=== PATIENT | female | born 1935 | race Caucasian/White ===

== ENCOUNTER 2017-09-10 14:24 | Emergency (ER) | payer OTHER, MEDICARE ==
[~2017-09-10] VITALS: Ht 154.9 cm; Wt 52.0 kg
[2017-09-10 14:27] VITALS: TEMP 36.9; Ht 154.9 cm; Wt 52.0 kg
[2017-09-10] MEDS ORDERED: EFF75 PO (15:56)
[2017-09-10 16:07] VITALS: BP 149/76; PULSE 66; O2SAT 97
--- NOTE | 2017-09-10 18:20 | EMERGENCY ROOM VISIT NOTE ---
History Report prepared by Tri: Eloise Woodward Under the Supervision of: Dr. Kervin Barrera M.D. First contact with patient: 14:31 Chief Complaint: MENTAL HEALTH EVALUATION Stated Complaint: ANX,DEPRESSION,HARD TO GET OUT OF BED/MAKE DECISON History of Present Illness The patient is a 81 year old female who presents to the Emergency Room for a mental health evaluation. The patient is in the ED with because she was told to come here to have her psychiatric medications adjusted. The patient's daughter talked to an intake nurse at Dr. Ramirez's-Psychiatry office who told the patient to come to the ED to "get her medications changed". The patient is moving from her home of 55 years in [place] to [place]. Per daughter, this move is causing increased stress to the patient. She has not been seen by Dr. Ramirez yet but will follow up with him after she completes her move to [place]. She has an appointment October 03. The patient takes Effexor and was put on Wellbutrin in April which wasn't working for her. The patient was then put on BuSpar in June. The patient notes feeling more anxious and depressed since starting BuSpar. She notes decreased appetite. She denies any fever. She has no significant physical complaints. She denies any suicidal or homicidal ideations. The patient has a history of depression, anxiety and diabetes. Source of History: patient Position: other (global ) Quality: other (mental health evaluation ) Modifying Factors (Relieving): other (none ) Associated Symptoms: No fevers Note: She notes decreased appetite. Review of Systems See HPI for pertinent positives & negatives. A total of 10 systems reviewed and were otherwise negative. Past Medical & Surgical Medical Problems: (1) Anxiety (2) Depression (3) Diabetes Family History Patient reports no known family medical history. Social History Smoking Status: Never Smoker Housing Status: lives with family Current/Historical Medications Scheduled Venlafaxine Hcl (Effexor), 75 MG PO DAILY Physical Exam Vital Signs Date Time Temp Pulse Resp B/P (MAP) Pulse Ox O2 Delivery O2 Flow Rate FiO2 09/10/17 16:07 66 149/76 97 09/10/17 14:27 36.9 72 20 184/81 94 Room Air Physical Exam Constitutional: Vital signs reviewed. Eyes: Pupils are equal round reactive to light. Conjunctiva are noninjected. ENT: Pharynx is clear without erythema or exudate. Mucous membranes are moist. Neck supple without meningeal signs. Respiratory: Clear to auscultation bilaterally. Breath sounds are equal bilaterally. Cardiovascular: Regular rate and rhythm. No rubs or gallops. GI: Soft, nondistended and nontender. Bowel sounds are present. Musculoskeletal: No peripheral edema. No lower extremity tenderness. Integumentary: No cyanosis. Neurological: The patient is awake and alert. No focal deficits. Psychiatric: Normal affect. Medical Decision & Procedures ED Course 1434: The patient was evaluated in room A6. A complete history and physical exam was performed. 1549: [facility] evaluated the patient and recommended having the patient increase her Effexor to 100 mg a day. 1609: Upon reevaluation, the patient appeared to have improvement of her symptoms. I discussed tonight's findings with the patient. She verbalized agreement of the treatment plan. The patient was discharged home. Medical Decision This is an 81-year-old female presents for mental health evaluation. I did perform a limited focused review of portions of the patient's old chart on the electronic medical record. The patient has had no recent pertinent visits to this hospital. I did evaluate the patient as noted above. She is presenting because she has had increased stress and anxiety. Her nurse told her to come here to have her psychiatric meds adjusted. She is not suicidal or homicidal. She had been sitting anxiety is morning which has seemed to have resolved. She does not desire or need inpatient psychiatric care. I did not feel comfortable adjusting her medications. We did have [facility] evaluate her and they recommended increasing her Effexor to 150 mg. Previously she was on 150 mg but they have decreased her when they put her on the BuSpar and Wellbutrin. The patient was happy with this plan. She was given a prescription for additional Effexor so that she would take 150 mg daily and will follow up with her psychiatrist per her appointment. Medication Reconcilliation Current Medication List: was personally reviewed by me Blood Pressure Screening Patient's blood pressure: Elevated blood pressure Blood pressure disposition: Referred to PCP Impression Primary Impression: Mood disorder Additional Impression: Acute anxiety Scribe Attestation The scribe's documentation has been prepared under my direct and personally reviewed by me in its entirety. I confirm that the note above accurately reflects all work, treatment, procedures, and medical decision making performed by me. Departure Information Dispostion Home / Self-Care Prescriptions Venlafaxine Hcl (Effexor) 75 Mg Tab 75 MG PO DAILY, #30 TAB Prov: Kervin Barrera M.D. 09/10/17 Referrals No Doctor, Assigned (PCP) Forms HOME CARE DOCUMENTATION FORM, IMPORTANT VISIT INFORMATION Patient Instructions ED Depression, My [facility] Additional Instructions You have been examined and treated today on an emergency basis only. This is not a substitute for, or an effort to provide, complete comprehensive medical care. It is impossible to recognize and treat all injuries or illnesses in a single emergency department visit. It is therefore important that you follow up closely with your psychiatrist per your appointment. Return for worsening symptoms or if you develop thoughts of hurting yourself or others or any other concerning symptoms. Increase your dose of Effexor to 150 mg daily. Problem Qualifiers
== END 2017-09-10 16:09 | disposition home or self-care (01) ==
LOC: C.EDB 14:26 → C.EDA 16:09
DX: F32.9 Major depressive disorder, single episode, unspecified (principal); F41.8 Other specified anxiety disorders; E11.9 Type 2 diabetes mellitus without complications

== ENCOUNTER → 2017-11-27 | Outpatient (CLI) | payer OTHER, MEDICARE ==
[~2017-11-27] MED LIST: EFF75 PO
[2017-11-27 17:48] LABS: ALBUMIN 3.7 gm/dl (3.4-5.0); ALT/SGPT 49 U/L (12-78); BLOOD UREA NITROGEN 25 mg/dl (7-18); CALCIUM 8.9 mg/dl (8.5-10.1); CARBON DIOXIDE 29 mmol/L (21-32); CREATININE 0.73 mg/dl (0.60-1.20); GLUCOSE 198 mg/dl (70-99); POTASSIUM 4.1 mmol/L (3.5-5.1); SODIUM 132 mmol/L (136-145)
[2017-11-27 17:51] LABS: ALKALINE PHOSPHATASE 95 U/L (45-117); AST/SGOT 33 U/L (15-37); TOTAL PROTEIN 6.7 gm/dl (6.4-8.2)
[2017-11-28 06:54] LABS: HEMOGLOBIN A1C 7.6 % (4.5-5.6)
== END | disposition home or self-care (01) ==
LOC: C.LABBFT 12:43
PROVIDERS: ATTEND Internal Medicine
DX: Z00.00 Encounter for general adult medical examination without abnormal findings (principal); E11.9 Type 2 diabetes mellitus without complications; G25.0 Essential tremor; F33.1 Major depressive disorder, recurrent, moderate

== ENCOUNTER → 2017-11-28 | Outpatient (CLI) | payer OTHER, MEDICARE | END | disposition home or self-care (01) | LOC: C.LABBFT 12:39 | PROVIDERS: ATTEND Student in an Organized Health Care Education/Training Program | DX: F33.1 Major depressive disorder, recurrent, moderate (principal) ==

== ENCOUNTER 2021-03-06 08:23 | Observation (INO) ==
[2021-03-06] MEDS ORDERED: ACETAMINOPHEN 500 MG TAB PO STA (08:43)
[2021-03-06] MEDS ORDERED: SODIUM CHLORIDE 0.9% 1000ML 1,000 ML IV SCH (08:45)
[2021-03-06] MEDS: SODIUM CHLORIDE 0.9% 1000ML 1,000 ML IV SCH ×3 (08:55→21:15)
[2021-03-06 09:06] LABS: Appearance Urine Cloudy (Clear); Bacteria Urine Automated 4+ (Negative); Bilirubin Urine Negative (Negative); Blood Urine 1+ (Negative); Color Urine Yellow; Epithelial Cell Urine Auto 0-5 /lpf (0-5); Glucose Urine UA Negative (Negative); Ketones Urine 2+ (Negative); Leukocyte Esterase Urine 3+ (Negative); Nitrite Urine Positive (Negative); Protein Urine 1+ (Negative); RBC Urine Automated 0-4 /hpf (0-4); Specific Gravity Urine 1.014 (1.000-1.030); Urobilinogen Urine Negative (Negative); WBC Urine Automated >30 /hpf (0-5)
--- NOTE | 2021-03-06 09:11 | Emergency Department Note ---
Impression & Plan Acute UTI (urinary tract infection), Fever, Weakness, Acute dehydration, Acute hyponatremia ED Provider Note INFORMANT: Patient and daughter ED PROVIDER(S): Tony Steiner MD CHIEF COMPLAINT: Illness PLAN: Disposition: Admitted Condition: Good Outpatient prescription management: None Referral: None MEDICAL DECISION MAKING: Patient presented due to weakness and fever. She had a work-up obtained. Cultures performed. Her CBC was unremarkable. Chemistry panel revealed mild hyperglycemia, dehydration mild hyponatremia. Urinalysis was concerning for infection. Patient was treated with normal saline and IV Rocephin. Her left lower extremity cellulitis looks much improved and nearly resolved. X-ray imaging of the foot and lower leg did not reveal any evidence of fracture. Chest x-ray was unremarkable except for some questionable left base markings. The patient has no pulmonary symptoms. Due to the weakness she will need further management in the hospital. Consultation was made with Dr. oRoney of the [facility] service. Patient was evaluated in the ER and admitted. Triage Nursing notes reviewed and agree them. Vital Signs: reviewed and remarkable for no significant abnormalities Differential diagnosis: Infection, dehydration, metabolic abnormality, hypo/hyperglycemia, electrolyte disturbance, anemia, hypoxia, cardiac sources, intracerebral event, toxicologic, neurologic, as well as other pathologies. Diagnostics interpreted by me: ECG: Twelve-lead ECG reveals normal sinus rhythm at 75 bpm. Left axis deviation. Anterior Q waves present. No ST elevation or depression. No PACs or PVCs. Cardiac Monitoring: Cardiac monitoring ordered by me: The patient was placed on continuous cardiac monitoring and observed. It revealed a normal sinus rhythm at 70 beats per minute without ectopy or evidence of dysrhythmia. Imaging studies: Chest x-ray as above. Tib-fib and left ankle x-rays show soft tissue swelling but no evidence of bony pathology. HPI: The patient is a 85 year old female who presents to the Emergency Room with complaints of weakness. This started last night and is persisting. Daughter states that she was unable to get her off of the toilet this morning and EMS was summoned. The patient also notes the following associated symptoms, fever, decreased appetite, fluctuating but increasing blood glucose measurements. Patient also noted that she had a swollen gland in the right neck anteriorly few days ago but it went away. The patient has found no relieving factors. Current pain in the left foot. The patient had an unwitnessed fall. She states she did not strike her head. She has recently been dealing with left lower extremity cellulitis. She was on clindamycin and Keflex. These medications were not helping and she was evaluated in the ER. She received IV Dalvance. She had a 48-hour recheck. She did much better with the Dalvance treatment. Her redness, warmth, and swelling diminished. She feels that the left dudley area of previous cellulitis has improved. She does note some swelling on the left foot and ankle area. She is unsure if this was a fall. Pt denies LOC, headache, fevers, chills, diaphoresis, visual changes, neck pain, chest pain, breathing difficulties, nausea, vomiting, abdominal pain, new back pain, melena, hematochezia, urinary symptoms, numbness, rash, or other complaints. ROS: See above HPI for pertinent positives & negatives. A total of 10 systems re viewed and were otherwise negative. PAST MEDICAL HISTORY:See Below , cellulitis, diabetes, Parkinson PAST SURGICAL HISTORY:See Below, FAMILY HISTORY:See Below SOCIAL HISTORY:See Below, lives with daughter HOME MEDICATIONS:See Below ALLERGIES:See Below VITALS:See Below PHYSICAL EXAMINATION: GENERAL: Awake, alert, tired-appearing, in no distress HENT: Normocephalic, atraumatic. Oropharynx unremarkable. EYES: Normal conjunctiva. Sclera non-icteric. NECK: Inspection normal. Non-tender. Supple. No nuchal rigidity. FROM. No masses. RESPIRATORY: Clear to auscultation. No wheezes. No rales. Normal respiratory effort. CARDIAC: Normal rate. Normal rhythm. No murmurs. No rubs. Extremities warm and well perfused. Pulses equal. No JVD. GI: Soft, non-distended. No tenderness to palpation. No rebound or guarding. No masses. RECTAL: Deferred. MUSCULOSKELETAL: Atraumatic. Chest examination reveals no tenderness. The back is symmetrical on inspection without obvious abnormality. There is no CVA tenderness to palpation. No joint edema. LOWER EXTREMITIES: Calves are equal size bilaterally and non-tender. There is a fading erythematous discoloration to the left lower leg. The previous warmth, significant erythema, and edema has improved significantly. There is some mild edema and tenderness noted to the ankle and foot. There is a purplish discoloration of the left foot as well but the daughter states this is chronic. NEURO: Normal sensorium. No sensory or motor deficits noted. Parkinsonian tremor. SKIN: No rash or jaundice noted. Tony Steiner MD Past Med/Surg History Medical History Acid reflux Arthritis of knee, right Asthma well controlled per pt's daughter> no resc inh. does still get [place] Bronchiectasis Chronic constipation Chronic low back pain Chronic rhinitis Depression with anxiety Diverticular disease unsure if has> possible? 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 Beliefs That Will Affect Care: None marital status: / Current Living Situation: Other Current Living Situation Comment: lives with daughter current occupational status: retired Feels Safe at Home: Yes Assistive Devices: Glasses and Hearing Aid - Bilateral Allergies Allergies Allergy/AdvReac Type Severity Reaction Status Date / Time sulfamethoxazole Allergy Severe swelling Verified 03/06/21 10:15 of ankles/hands/feet amoxicillin [From Augmentin] Allergy Intermediate Hives Verified 03/06/21 10:15 clavulanic acid Allergy Intermediate Hives Verified 03/06/21 10:15 [From Augmentin] doxycycline Allergy Intermediate Gastrointestinal Verified 03/06/21 10:15 Upset Home Meds Home Medications Medication Instructions Recorded Confirmed buspirone 7.5 mg tablet 7.5 mg PO TIDM tab 02/26/19 03/06/21 aripiprazole 2 mg tablet 4 mg PO QAM 06/30/19 03/06/21 venlafaxine 150 mg 150 mg PO DAILYBB 06/30/19 03/06/21 capsule,extended release 24 hr venlafaxine 37.5 mg 37.5 mg PO DAILYBB 06/30/19 03/06/21 tablet,extended release 24 hr Centrum Silver Women 1 tab PO QDL 05/31/20 03/06/21 Probiotic 3,000 mmu cells PO DAILYBB 05/31/20 03/06/21 venlafaxine 75 mg PO DAILYBB 05/31/20 03/06/21 insulin lispro 100 unit/mL 25 unit SQ AC ml MDD 30 UNITS 07/13/20 03/06/21 subcutaneous pen insulin glargine 100 unit/mL (3 13 unit SQ HS ml 09/19/20 03/06/21 mL) subcutaneous pen PreserVision AREDS-2 1 tab PO BIDM 10/26/20 03/06/21 calcium carbonate-vitamin D3 1 tab PO QDD 10/26/20 03/06/21 [Calcium 600 + D(3)] tamoxifen 20 mg tablet 20 mg PO DAILY 12/23/20 03/06/21 alendronate 70 mg tablet 70 mg PO .weekly tab 01/10/21 03/06/21 polyethylene glycol 3350 17 gram 17 g PO DAILY PRN 01/10/21 03/06/21 oral powder packet levocetirizine 5 mg tablet 5 mg PO HS tab 02/22/21 03/06/21 fluticasone furoate-vilanterol 1 inh INHALATION QAM 03/06/21 03/06/21 [Breo Ellipta] pantoprazole [Protonix] 40 mg PO QAM 03/06/21 03/06/21 primidone 200 mg PO TIDM 03/06/21 03/06/21 Previous Rx's Medication Instructions Recorded albuterol sulfate 90 mcg/actuation 2 puff INHALATION Q6H PRN #18 g 02/03/21 aerosol inhaler fluticasone propionate 50 1 - 2 spray INTRANASAL DAILY #15.8 02/03/21 mcg/actuation nasal ml spray,suspension montelukast 10 mg tablet 10 mg PO HS #90 tab 02/03/21 tiotropium bromide 1.25 2 puff INH QAM #4 g 02/03/21 mcg/actuation mist for inhalation oxycodone 5 mg tablet 5 mg PO Q6H PRN 30 Days #90 tab 02/14/21 propranolol 120 mg capsule,24 120 mg PO HS #30 cap 02/21/21 hr,extended release zonisamide 50 mg capsule 50 mg PO BID 30 Days #60 cap 02/21/21 fluconazole 150 mg tablet 150 mg PO Q3D #2 tab 02/28/21 Results & Data (ED) Vital Signs Vital Signs - 24 hr 03/06/21 08:25 03/06/21 08:26 03/06/21 08:47 Temperature 38.3 C H Temperature Source Oral Pulse Rate 74 74 Pulse Rate from SpO2 Sensor 73 Pulse Rhythm Regular Respiratory Rate 16 22 16 Respiratory Effort / Characteristics Non-Labored Spontaneous Non-Labored Spontaneous Respiratory Depth Normal Respiratory Pattern Regular Blood Pressure 124/79 124/79 Blood Pressure Mean 94 94 Pulse Oximetry 95 95 95 Oxygen Delivery Method Room Air Sepsis Recent Fever Within 48 Hours Yes Sepsis New/Unexplained Change in Mental Status No Sepsis Action Taken by Nursing No Action Required 03/06/21 08:50 03/06/21 09:00 03/06/21 09:30 Temperature Temperature Source Pulse Rate 70 72 69 Pulse Rate from SpO2 Sensor 70 72 69 Pulse Rhythm Respiratory Rate 20 19 22 Respiratory Effort / Characteristics Respiratory Depth Respiratory Pattern Blood Pressure 133/61 125/72 148/62 H Blood Pressure Mean 85 89 90 Pulse Oximetry 93 96 94 Oxygen Delivery Method Sepsis Recent Fever Within 48 Hours Sepsis New/Unexplained Change in Mental Status Sepsis Action Taken by Nursing 03/06/21 10:00 03/06/21 10:28 03/06/21 10:30 Temperature 36.8 C Temperature Source Oral Pulse Rate 70 70 Pulse Rate from SpO2 Sensor 68 70 Pulse Rhythm Respiratory Rate 19 20 Respiratory Effort / Characteristics Respiratory Depth Respiratory Pattern Blood Pressure 138/67 133/64 Blood Pressure Mean 90 87 Pulse Oximetry 95 93 Oxygen Delivery Method Sepsis Recent Fever Within 48 Hours Sepsis New/Unexplained Change in Mental Status Sepsis Action Taken by Nursing Laboratory Data Result diagrams: 03/06/21 08:45 03/06/21 08:45 Lab Results 03/06/21 03/06/21 03/06/21 Range/Units 08:40 08:45 08:45 WBC 7.39 (4.8-10.8) K/uL RBC 3.92 L (4.2-5.4) M/uL Hgb 12.9 (12.0-16.0) g/dL Hct 36.2 L (37-47) % MCV 92.3 (80-100) fL MCH 32.9 (25-34) pg MCHC 35.6 (32-36) g/dL RDW Std Deviation 46.3 (36.4-46.3) fL RDW Coeff of Nan 13.8 (11.5-14.5) % Plt Count 223 (130-400) K/uL MPV 9.6 (7.4-10.4) fL Immature Gran % (Auto) 0.4 % Neut % (Auto) 76.3 % Lymph % (Auto) 6.0 % Burnet % (Auto) 13.8 % Eos % (Auto) 3.2 % Baso % (Auto) 0.3 % Neut # (Auto) 5.64 (1.4-6.5) K/uL Lymph # (Auto) 0.44 L (1.2-3.4) K/uL Burnet # (Auto) 1.02 H (0.11-0.59) K/uL Eos # (Auto) 0.24 (0-0.5) K/uL Baso # (Auto) 0.02 (0-0.2) K/uL Immature Gran # (Auto) 0.03 H (0.00-0.02) K/uL PT 9.8 (9.0-12.0) Seconds INR 1.0 (0.9-1.1) APTT 22.8 (21.0-31.0) Seconds PTT Ratio 0.9 Sodium (136-145) mmol/L Potassium (3.5-5.1) mmol/L Chloride (98-107) mmol/L Carbon Dioxide (21-32) mmol/L Anion Gap (3-11) BUN (7-18) mg/dl Creatinine (0.6-1.2) mg/dl Est Cr Clr Drug Dosing Est GFR ( Amer) ml/min Est GFR (Non-Af Amer) ml/min BUN/Creatinine Ratio (10-20) Glucose (70-99) mg/dl Lactate (0.4-2.0) mmol/L Calcium (8.5-10.1) mg/dl Magnesium (1.8-2.4) mg/dl Total Bilirubin (0.2-1) mg/dl AST (15-37) U/L ALT (12-78) U/L Alkaline Phosphatase (45-117) U/L Troponin I (0-0.045) ng/ml Total Protein (6.4-8.2) gm/dl Albumin (3.4-5.0) gm/dl Globulin (2.5-4.0) gm/dl Albumin/Globulin Ratio (0.9-2) Specimen Hemolysis Urine Color Yellow Urine Appearance Cloudy A (Clear) Urine pH 7.0 (4.5-7.5) Ur Specific [place] 1.014 (1.000-1.030) Urine Protein 1+ H (Negative) Urine Glucose (UA) Negative (Negative) Urine Ketones 2+ H (Negative) Urine Blood 1+ H (Negative) Urine Nitrite Positive A (Negative) Urine Bilirubin Negative (Negative) Urine Urobilinogen Negative (Negative) Ur Leukocyte Esterase 3+ H (Negative) Urine WBC (Auto) >30 H (0-5) /hpf Urine RBC (Auto) 0-4 (0-4) /hpf U Hyaline Cast (Auto) 1-5 (0-5) /lpf U Epithel Cells (Auto) 0-5 (0-5) /lpf Urine Bacteria (Auto) 4+ H (Negative) COVID-19 Eval Order SARS-CoV-2 (PCR) (Negative) 03/06/21 03/06/21 03/06/21 Range/Units 08:45 08:45 08:52 WBC (4.8-10.8) K/uL RBC (4.2-5.4) M/uL Hgb (12.0-16.0) g/dL Hct (37-47) % MCV (80-100) fL MCH (25-34) pg MCHC (32-36) g/dL RDW Std Deviation (36.4-46.3) fL RDW Coeff of Nan (11.5-14.5) % Plt Count (130-400) K/uL MPV (7.4-10.4) fL Immature Gran % (Auto) % Neut % (Auto) % Lymph % (Auto) % Burnet % (Auto) % Eos % (Auto) % Baso % (Auto) % Neut # (Auto) (1.4-6.5) K/uL Lymph # (Auto) (1.2-3.4) K/uL Burnet # (Auto) (0.11-0.59) K/uL Eos # (Auto) (0-0.5) K/uL Baso # (Auto) (0-0.2) K/uL Immature Gran # (Auto) (0.00-0.02) K/uL PT (9.0-12.0) Seconds INR (0.9-1.1) APTT (21.0-31.0) Seconds PTT Ratio Sodium 128 L (136-145) mmol/L Potassium 4.1 (3.5-5.1) mmol/L Chloride 96 L (98-107) mmol/L Carbon Dioxide 25 (21-32) mmol/L Anion Gap 7.0 (3-11) BUN 13 (7-18) mg/dl Creatinine 0.54 L (0.6-1.2) mg/dl Est Cr Clr Drug Dosing Not Reportable Est GFR ( Amer) 100.4 ml/min Est GFR (Non-Af Amer) 86.7 ml/min BUN/Creatinine Ratio 23.9 H (10-20) Glucose 207 H (70-99) mg/dl Lactate 1.2 (0.4-2.0) mmol/L Calcium 8.6 (8.5-10.1) mg/dl Magnesium 1.9 (1.8-2.4) mg/dl Total Bilirubin 0.4 (0.2-1) mg/dl AST 19 (15-37) U/L ALT 19 (12-78) U/L Alkaline Phosphatase 87 (45-117) U/L Troponin I < 0.015 (0-0.045) ng/ml Total Protein 6.3 L (6.4-8.2) gm/dl Albumin 3.1 L (3.4-5.0) gm/dl Globulin 3.2 (2.5-4.0) gm/dl Albumin/Globulin Ratio 1.0 (0.9-2) Specimen Hemolysis Urine Color Urine Appearance (Clear) Urine pH (4.5-7.5) Ur Specific [place] (1.000-1.030) Urine Protein (Negative) Urine Glucose (UA) (Negative) Urine Ketones (Negative) Urine Blood (Negative) Urine Nitrite (Negative) Urine Bilirubin (Negative) Urine Urobilinogen (Negative) Ur Leukocyte Esterase (Negative) Urine WBC (Auto) (0-5) /hpf Urine RBC (Auto) (0-4) /hpf U Hyaline Cast (Auto) (0-5) /lpf U Epithel Cells (Auto) (0-5) /lpf Urine Bacteria (Auto) (Negative) COVID-19 Eval Order Covid19 at [facility] SARS-CoV-2 (PCR) (Negative) 03/06/21 Range/Units 08:52 WBC (4.8-10.8) K/uL RBC (4.2-5.4) M/uL Hgb (12.0-16.0) g/dL Hct (37-47) % MCV (80-100) fL MCH (25-34) pg MCHC (32-36) g/dL RDW Std Deviation (36.4-46.3) fL RDW Coeff of Nan (11.5-14.5) % Plt Count (130-400) K/uL MPV (7.4-10.4) fL Immature Gran % (Auto) % Neut % (Auto) % Lymph % (Auto) % [place] % (Auto) % Eos % (Auto) % Baso % (Auto) % Neut # (Auto) (1.4-6.5) K/uL Lymph # (Auto) (1.2-3.4) K/uL [place] # (Auto) (0.11-0.59) K/uL Eos # (Auto) (0-0.5) K/uL Baso # (Auto) (0-0.2) K/uL Immature Gran # (Auto) (0.00-0.02) K/uL PT (9.0-12.0) Seconds INR (0.9-1.1) APTT (21.0-31.0) Seconds PTT Ratio Sodium (136-145) mmol/L Potassium (3.5-5.1) mmol/L Chloride (98-107) mmol/L Carbon Dioxide (21-32) mmol/L Anion Gap (3-11) BUN (7-18) mg/dl Creatinine (0.6-1.2) mg/dl Est Cr Clr Drug Dosing Est GFR ( Amer) ml/min Est GFR (Non-Af Amer) ml/min BUN/Creatinine Ratio (10-20) Glucose (70-99) mg/dl Lactate (0.4-2.0) mmol/L Calcium (8.5-10.1) mg/dl Magnesium (1.8-2.4) mg/dl Total Bilirubin (0.2-1) mg/dl AST (15-37) U/L ALT (12-78) U/L Alkaline Phosphatase (45-117) U/L Troponin I (0-0.045) ng/ml Total Protein (6.4-8.2) gm/dl Albumin (3.4-5.0) gm/dl Globulin (2.5-4.0) gm/dl Albumin/Globulin Ratio (0.9-2) Specimen Hemolysis Urine Color Urine Appearance (Clear) Urine pH (4.5-7.5) Ur Specific [place] (1.000-1.030) Urine Protein (Negative) Urine Glucose (UA) (Negative) Urine Ketones (Negative) Urine Blood (Negative) Urine Nitrite (Negative) Urine Bilirubin (Negative) Urine Urobilinogen (Negative) Ur Leukocyte Esterase (Negative) Urine WBC (Auto) (0-5) /hpf Urine RBC (Auto) (0-4) /hpf U Hyaline Cast (Auto) (0-5) /lpf U Epithel Cells (Auto) (0-5) /lpf Urine Bacteria (Auto) (Negative) COVID-19 Eval Order SARS-CoV-2 (PCR) NEGATIVE (Negative) Administered Medications Sodium Chloride (Nss 1000ml) 1,000 mls @ 150 mls/hr IV .[id number] ROBB Stop: 04/05/21 08:44 Last Admin: 03/06/21 08:55 Dose: 150 mls/hr Documented by: [id number] Discontinued Medications Acetaminophen (Acetaminophen 500 Mg Tab) 1,000 mg PO NOW STA Stop: 03/06/21 08:44 Last Admin: 03/06/21 08:51 Dose: 1,000 mg Documented by: [id number] Sodium Chloride (Nss 1000ml) 1,000 mls @ 999 mls/hr IV .Q1H1M ROBB Stop: 03/06/21 09:45 Last Infusion: 03/06/21 10:02 Dose: 0 mls/hr Documented by: [id number] Admin: 03/06/21 08:54 Dose: 999 mls/hr Documented by: [id number] Ceftriaxone Sodium (Rocephin) 1,000 mg in 50 mls @ 100 mls/hr IV NOW STA Stop: 03/06/21 11:07 Last Admin: 03/06/21 11:38 Dose: 100 mls/hr Documented by: [id number] Imaging Data Radiologist's Impression: Chest X-Ray 03/06/21 08:43 XR chest 1V portable CLINICAL HISTORY: SEPSIS COMPARISON STUDY: 10/26/2020 FINDINGS: The heart is enlarged. There is a mild scoliosis. There are minor left basilar airspace opacities, atelectatic versus infectious/inflammatory. There is no overt failure. There are no large pleural effusions. There is an old right-sided rib fracture.[ IMPRESSION: Minor left basilar opacities, atelectatic versus infectious/inflammatory ACT 112: Negative or not required by law. Electronically signed by: Serge Arias M.D. 03/06/2021 9:15 AM Foot X-Ray 03/06/21 08:44 XR foot LT min 3V routine HISTORY: 85 years-old Female fall acute left foot pain status post fall COMPARISON: Tibia and fibula radiographs of same day TECHNIQUE: 3 views of the left foot FINDINGS: Demineralized appearance of the bones. Multifocal osteoarthritis, moderate to severe within the midfoot. Extension of the first MTP joint limits evaluation of the first proximal phalanx. No acute fracture, dislocation or osseous erosion identified. Mild soft tissue swelling of the forefoot. IMPRESSION: Mild soft tissue swelling without acute fracture. ACT 112: Negative or not required by law. The above report was generated using voice recognition software. It may contain grammatical, syntax or spelling errors. Electronically signed by: Gerry Rosas M.D. 03/06/2021 9:12 AM Tibia/Fibula X-Ray 03/06/21 08:44 XR tibia fibula LT 2V CLINICAL HISTORY: fall, recent cellulitis over dudley COMPARISON STUDY: None. FINDINGS: No fracture or dislocation within the left tibia or fibula. There is mild diffuse soft tissue swelling within the left lower leg. This is most pronounced within the left ankle. No radiopaque foreign body. A few punctate vascular calcifications are noted within the soft tissues. IMPRESSION: 1. No fractures within the left lower leg. 2. Diffuse soft tissue swelling. ACT 112: Negative or not required by law. Electronically signed by: Hansel Wing M.D. 03/06/2021 9:31 AM Discharge Plan Visit Data Chief Complaint: Illness Stated Complaint: WEAKNESS, ED Provider: Tony Steiner Discharge Problem: Acute UTI (urinary tract infection), Fever, Weakness, Acute dehydration, Acute hyponatremia Forms Stand Alone Forms: [facility] Prescriptions Prescriptions: No Action insulin lispro [Humalog KwikPen Insulin] 100 unit/mL insulin pen 25 unit SQ AC MDD 30 UNITS RF: 0 oxycodone 5 mg tablet 5 mg PO Q6H PRN (Reason: pain) 30 Days Qty: 90 RF: 0 fluconazole 150 mg tablet 150 mg PO Q3D Qty: 2 RF: 0 buspirone 7.5 mg tablet 7.5 mg PO TIDM RF: 0 aripiprazole [Abilify] 2 mg tablet 4 mg PO QAM RF: 0 venlafaxine 150 mg capsule,extended release 24hr 150 mg PO DAILYBB RF: 0 venlafaxine 37.5 mg tablet extended release 24hr 37.5 mg PO DAILYBB RF: 0 Spiriva Respimat 1.25 mcg/actuation mist 2 puff INH QAM Qty: 4 RF: 5 albuterol sulfate 90 mcg/actuation HFA aerosol inhaler 2 puff inhalation Q6H PRN (Reason: shortness of breath or wheezing) Qty: 18 RF: 3 montelukast 10 mg tablet 10 mg PO HS Qty: 90 RF: 1 fluticasone propionate 50 mcg/actuation spray,suspension 1 - 2 spray intranasal DAILY Qty: 15.8 RF: 1 Lantus Solostar U-100 Insulin 100 unit/mL (3 mL) insulin pen 13 unit SQ HS RF: 0 zonisamide 50 mg capsule 50 mg PO BID 30 Days Qty: 60 RF: 5 propranolol 120 mg capsule,extended release 24 hr 120 mg PO HS Qty: 30 RF: 5 levocetirizine 5 mg tablet 5 mg PO HS RF: 0 tamoxifen 20 mg tablet 20 mg PO DAILY RF: 0 alendronate 70 mg tablet 70 mg PO .weekly RF: 0 Probiotic 3 billion cell Capsule 3,000 mmu cells PO DAILYBB RF: 0 venlafaxine 75 mg capsule,extended release 24hr 75 mg PO DAILYBB RF: 0 Centrum Silver Women 8 mg iron-400 mcg-300 mcg tablet 1 tab PO QDL RF: 0 polyethylene glycol 3350 [Miralax] 17 gram powder in packet 17 g PO DAILY PRN (Reason: Constipation) RF: 0 calcium carbonate-vitamin D3 [Calcium 600 + D(3)] 600 mg(1,500mg) -200 unit Tablet 1 tab PO QDD RF: 0 PreserVision AREDS-2 [id number] capsule 1 tab PO BIDM RF: 0 primidone 50 mg tablet 200 mg PO TIDM RF: 0 pantoprazole [Protonix] 40 mg tablet,delayed release (DR/EC) 40 mg PO QAM RF: 0 Breo Ellipta 100-25 mcg/dose blister with device 1 inh inhalation QAM RF: 0
--- NOTE | 2021-03-06 09:13 | XRay Report ---
XR foot LT min 3V routine HISTORY: 85 years-old Female fall acute left foot pain status post fall COMPARISON: Tibia and fibula radiographs of same day TECHNIQUE: 3 views of the left foot FINDINGS: Demineralized appearance of the bones. Multifocal osteoarthritis, moderate to severe within the midfo ot. Extension of the first MTP joint limits evaluation of the first proximal phalanx. No acute fractu re, dislocation or osseous erosion identified. Mild soft tissue swelling of the forefoot. IMPRESSION: Mild soft tissue swelling without acute fracture. ACT 112: Negative or not required by law. The above report was generated using voice recognition software. It may contain grammatical, syntax o r spelling errors. Electronically signed by: Gerry Rosas M.D. 03/06/2021 9:12 AM
[2021-03-06 09:14] LABS: Partial Thromboplastin Ratio 0.9; Partial Thromboplastin Time 22.8 Seconds (21.0-31.0); Prothrombin Time 9.8 Seconds (9.0-12.0)
[2021-03-06 09:15] LABS: Basophils # (auto) 0.02 K/uL (0-0.2); Basophils % (auto) 0.3 %; Eosinophils # (auto) 0.24 K/uL (0-0.5); Eosinophils % (auto) 3.2 %; Hematocrit (blood only) 36.2 % (37-47); Hemoglobin 12.9 g/dL (12.0-16.0); Immature Granulocytes # (auto) 0.03 K/uL (0.00-0.02); Immature Granulocytes % (auto) 0.4 %; Lymphocytes # (auto) 0.44 K/uL (1.2-3.4); Mean Corpuscular Hemoglobin 32.9 pg (25-34); Mean Corpuscular Hgb Conc 35.6 g/dL (32-36); Mean Corpuscular Volume 92.3 fL (80-100); Mean Platelet Volume 9.6 fL (7.4-10.4); Monocytes # (auto) 1.02 K/uL (0.11-0.59); Monocytes % (auto) 13.8 %; Neutrophils # (auto) 5.64 K/uL (1.4-6.5); Neutrophils % (auto) 76.3 %; Platelet Count 223 K/uL (130-400); RDW Coefficient of Variation 13.8 % (11.5-14.5); RDW Standard Deviation 46.3 fL (36.4-46.3); Red Blood Count 3.92 M/uL (4.2-5.4); White Blood Count 7.39 K/uL (4.8-10.8)
--- NOTE | 2021-03-06 09:16 | XRay Report ---
XR chest 1V portable CLINICAL HISTORY: SEPSIS COMPARISON STUDY: 10/26/2020 FINDINGS: The heart is enlarged. There is a mild scoliosis. There are minor left basilar airspace opa cities, atelectatic versus infectious/inflammatory. There is no overt failure. There are no large ple ural effusions. There is an old right-sided rib fracture.[ IMPRESSION: Minor left basilar opacities, atelectatic versus infectious/inflammatory ACT 112: Negative or not required by law. Electronically signed by: Serge Arias M.D. 03/06/2021 9:15 AM
[2021-03-06 09:30] LABS: Alanine Aminotransferase 19 U/L (12-78); Albumin Level 3.1 gm/dl (3.4-5.0); Alkaline Phosphatase 87 U/L (45-117); Aspartate Aminotransferase 19 U/L (15-37); BUN Creatinine Ratio 23.9 (10-20); Bilirubin,Total 0.4 mg/dl (0.2-1); Blood Urea Nitrogen 13 mg/dl (7-18); Calcium 8.6 mg/dl (8.5-10.1); Carbon Dioxide 25 mmol/L (21-32); Chloride 96 mmol/L (98-107); Est GFR (African American) 100.4 ml/min; Est GFR (Non-African American) 86.7 ml/min; Globulin 3.2 gm/dl (2.5-4.0); Glucose 207 mg/dl (70-99); Magnesium 1.9 mg/dl (1.8-2.4); Potassium 4.1 mmol/L (3.5-5.1); Sodium 128 mmol/L (136-145); Total Protein 6.3 gm/dl (6.4-8.2); Troponin I < 0.015 ng/ml (0-0.045)
--- NOTE | 2021-03-06 09:32 | XRay Report ---
XR tibia fibula LT 2V CLINICAL HISTORY: fall, recent cellulitis over dudley COMPARISON STUDY: None. FINDINGS: No fracture or dislocation within the left tibia or fibula. There is mild diffuse soft tiss ue swelling within the left lower leg. This is most pronounced within the left ankle. No radiopaque f oreign body. A few punctate vascular calcifications are noted within the soft tissues. IMPRESSION: 1. No fractures within the left lower leg. 2. Diffuse soft tissue swelling. ACT 112: Negative or not required by law. Electronically signed by: Hansel Wing M.D. 03/06/2021 9:31 AM
[2021-03-06] MEDS ORDERED: cefTRIAXone SODIUM 1,000 MG/50 ML BAG IV STA (10:38)
--- NOTE | 2021-03-06 11:30 | History & Physical Report ---
Date of Service March 06, 2021 Assessment & Plan (1) UTI (urinary tract infection): Likely cause of patient's generalized weakness Admit to a nonmonitored bed Patient was given ceftriaxone in the emergency room, continue empirically Await urine and blood cultures PT/OT evaluation (patient is recently started using a cane at home) (2) Cellulitis of left leg: Left lower extremity appears to be without active cellulitis, essentially healed Can continue to monitor prn (3) T1DM (type 1 diabetes mellitus): Check hemoglobin A1c Restart basal insulin at outpatient dosing Sliding scale insulin (4) Essential tremor: Patient does have a resting tremor, she is known to neurology as an outpatient Continue medications as per outpatient dosing including zonisamide, primadone and propranolol PT/OT as noted above History of Present Illness Chief Complaint: generalized weakness Primary Care Provider: Cris Sandoval MD This is an 85-year-old female with past medical history insulin-dependent diabetes mellitus, hyperlipidemia, essential tremor, and recent cellulitis that presents today with generalized weakness. Patient is accompanied by her daughter, both are pleasant and good historians. Patient was here in the emergency room 02/24 with left lower extremity cellulitis, had been treated with Keflex and clindamycin without success. Patient was treated with Dalvance, had followed up in the ER on 02/26 with significant improvement in her infection. Patient apparently did well and continued and improved. She notes only a slight decrease in appetite over the past 48 hours. At approximately 4 AM the patient got up from bed to go to the bathroom. After she urinated she found she was too weak to get off the toilet. She tried to call for her daughter who lives with her but the daughter did not hear. Patient was on the toilet for approximately 2-1/2 hours before the daughter found her there. Patient did also suffer a mild fall, injuring her left leg. She did not strike her head or lose consciousness. Patient was subsequently brought to the emergency room for further evaluation. Patient was found to be febrile with a temp of 38.3 C. Vitals are otherwise stable with normal heart rate and blood pressure. She did complain of ongoing generalized weakness but denied any other focal symptomatology including flank pain, chest pain, abdominal pain. She denied any urinary symptoms such as dysuria, hematuria, or suprapubic pain. She has not had any diarrhea or constipation. She is starting to have a little bit of an appetite. She states that her leg is essentially back to its baseline with no further erythema or pain. Allergies Allergy/AdvReac Type Severity Reaction Status Date / Time sulfamethoxazole Allergy Severe swelling Verified 03/06/21 10:15 of ankles/hands/feet amoxicillin [From Augmentin] Allergy Intermediate Hives Verified 03/06/21 10:15 clavulanic acid Allergy Intermediate Hives Verified 03/06/21 10:15 [From Augmentin] doxycycline Allergy Intermediate Gastrointestinal Verified 03/06/21 10:15 Upset Home Medications Medication Instructions Recorded Confirmed Type buspirone 7.5 mg tablet 7.5 mg PO TIDM tab 02/26/19 03/06/21 History aripiprazole 2 mg tablet 4 mg PO QAM 06/30/19 03/06/21 History venlafaxine 150 mg 150 mg PO DAILYBB 06/30/19 03/06/21 History capsule,extended release 24 hr venlafaxine 37.5 mg 37.5 mg PO DAILYBB 06/30/19 03/06/21 History tablet,extended release 24 hr Centrum Silver Women 1 tab PO QDL 05/31/20 03/06/21 History Probiotic 3,000 mmu cells PO DAILYBB 05/31/20 03/06/21 History venlafaxine 75 mg PO DAILYBB 05/31/20 03/06/21 History insulin lispro 100 unit/mL 25 unit SQ AC ml MDD 30 UNITS 07/13/20 03/06/21 History subcutaneous pen insulin glargine 100 unit/mL (3 13 unit SQ HS ml 09/19/20 03/06/21 History mL) subcutaneous pen PreserVision AREDS-2 1 tab PO BIDM 10/26/20 03/06/21 History calcium carbonate-vitamin D3 1 tab PO QDD 10/26/20 03/06/21 History [Calcium 600 + D(3)] tamoxifen 20 mg tablet 20 mg PO DAILY 12/23/20 03/06/21 History alendronate 70 mg tablet 70 mg PO .weekly tab 01/10/21 03/06/21 History polyethylene glycol 3350 17 gram 17 g PO DAILY PRN 01/10/21 03/06/21 History oral powder packet albuterol sulfate 90 mcg/actuation 2 puff INHALATION Q6H PRN #18 g 02/03/21 03/06/21 Rx aerosol inhaler fluticasone propionate 50 1 - 2 spray INTRANASAL DAILY #15.8 02/03/21 03/06/21 Rx mcg/actuation nasal ml spray,suspension montelukast 10 mg tablet 10 mg PO HS #90 tab 02/03/21 03/06/21 Rx tiotropium bromide 1.25 2 puff INH QAM #4 g 02/03/21 03/06/21 Rx mcg/actuation mist for inhalation oxycodone 5 mg tablet 5 mg PO Q6H PRN 30 Days #90 tab 02/14/21 03/06/21 Rx propranolol 120 mg capsule,24 120 mg PO HS #30 cap 02/21/21 03/06/21 Rx hr,extended release zonisamide 50 mg capsule 50 mg PO BID 30 Days #60 cap 02/21/21 03/06/21 Rx levocetirizine 5 mg tablet 5 mg PO HS tab 02/22/21 03/06/21 History fluconazole 150 mg tablet 150 mg PO Q3D #2 tab 02/28/21 03/06/21 Rx fluticasone furoate-vilanterol 1 inh INHALATION QAM 03/06/21 03/06/21 History [Breo Ellipta] pantoprazole [Protonix] 40 mg PO QAM 03/06/21 03/06/21 History primidone 200 mg PO TIDM 03/06/21 03/06/21 History Past Med/Surg History Medical History Acid reflux Arthritis of knee, right Asthma well controlled per pt's daughter> no resc inh. does still get [place] Bronchiectasis Chronic constipation Chronic low back pain Chronic rhinitis Depression with anxiety Diverticular disease unsure if has> possible? 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 White 06/08/2020 Family History Sister Diabetes Cancer Family/Other Lung disease Brother Cancer Social History Smoking Status: Never smoker Age Started Using Tobacco: 19; Age Quit Using Tobacco: 29; packs per day: 1; Years Smoked: 10; Number of Years Since Quit: 54; Second Hand Exposure: Yes; Hx Alcohol Use: Yes Alcohol type: wine Hx Substance Use: No Preferred Language: [place]an Communication Ability: Effective Visual Impairment: No Limitations Hearing Ability: Use of Hearing Aid Door Clamper Required: No Beliefs That Will Affect Care: None marital status: / Current Living Situation: Other Current Living Situation Comment: lives with daughter current occupational status: retired Feels Safe at Home: Yes Assistive Devices: Glasses and Hearing Aid - Bilateral Review of Systems Constitutional: + fever, + weakness and + anorexia; no chills, no weight loss and no weight gain Eyes: as per Subjective / HPI Respiratory: no cough, no chest congestion, no dyspnea and no dyspnea on exertion Cardiovascular: no chest pain, no orthopnea, no palpitations, no lightheadedness and no edema Gastrointestinal: no abdominal pain, no nausea, no vomiting, no constipation and no diarrhea/loose stools Genitourinary: no dysuria, no difficulty urinating, no urinary frequency, no urinary hesitancy, no urinary urgency and no flank pain Musculoskeletal: + joint pain and + muscle weakness; no back pain, no neck pain, no stiffness and no myalgia Integumentary: no rash Neurologic: no gait abnormality, no unsteadiness, no falls and no generalized weakness Physical Exam Constitutional: cooperative and comfortable; no acute distress Neck: trachea midline, no thyromegaly Respiratory: normal respiratory effort Auscultation: lungs clear to auscultation bilaterally; no crackles, no rales, no rhonchi and no wheezes Cardiovascular: Rate/Rhythm: regular rate and regular rhythm Heart Sounds: normal S1 and normal S2; no murmur Gastrointestinal (Abdomen): Inspection/Auscultation: abdomen normal to inspection Percussion/Palpation: abdomen soft; abdomen nontender, no g uarding, abdomen not rigid and no hepatosplenomegaly Skin: no rashes, warm and dry Genitourinary: No flank pain or suprapubic tenderness Results & Data Results & Data ([facility]) Vital Signs (Past 12 Hours) Vital Signs Temp Pulse Resp BP Pulse Ox 03/06/21 10:30 70 20 133/64 93 03/06/21 10:28 36.8 C 03/06/21 10:00 70 19 138/67 95 03/06/21 09:30 69 22 148/62 H 94 03/06/21 09:00 72 19 125/72 96 03/06/21 08:50 70 20 133/61 93 03/06/21 08:47 16 95 03/06/21 08:26 74 22 124/79 95 03/06/21 08:25 38.3 C H 74 16 124/79 95 PG Care Time/CCT Total # of Minutes Spent Total Time Spent with Patient: Total time spent is greater than 50% in coor dination of care (as documented) at patient's floor/unit and/or counseling patient: Coding Level of Care Code 63405 Initial Inpt Care Lvl 3 Diagnoses UTI (urinary tract infection) N39.0 Cellulitis of left leg L03.116 T1DM (type 1 diabetes mellitus) E10.9 Essential tremor G25.0
[2021-03-06] MEDS ORDERED: GLUCOSE 10 TABS/TUBE PO PRN (12:58)
[2021-03-06] MEDS ORDERED: CARBOHYDRATES FOR HYPOGLYCEMIA PO PRN (12:58)
[2021-03-06] MEDS ORDERED: ACETAMINOPHEN 325 MG TAB PO PRN (12:58)
[2021-03-06] MEDS ORDERED: GLUCOSE 40% GEL 15 GM TUBE PO PRN (12:58)
[2021-03-06] MEDS ORDERED: ALBUTEROL HFA 8 GM INHALER INH PRN (12:58)
[2021-03-06] MEDS ORDERED: POLYETHYLENE (MIRALAX) 17 GM PACK PO PRN (12:58)
[2021-03-06] MEDS ORDERED: GLUCAGON FOR INJ 1 MG VIAL SQ PRN (12:58)
[2021-03-06] MEDS ORDERED: DEXTROSE 50% 50 ML SYRINGE IV PRN (12:58)
[2021-03-06] MEDS ORDERED: oxyCODONE HCL IR 5 MG TAB (IMMEDIATE RELEASE) PO PRN (13:19)
[2021-03-06] MEDS: INSULIN ASPART 100 UNITS/ML 3 ML PEN SC SCH ×3 (13:50→21:34)
[2021-03-06] MEDS: PRIMIDONE 50 MG TAB PO SCH ×2 (13:58→18:10)
[2021-03-06] MEDS: busPIRone 7.5 MG TAB PO SCH ×2 (13:58→18:10)
[2021-03-06] MEDS ORDERED: CALCIUM CARBONATE 500 MG CHEWABLE TAB PO PRN (15:48)
[2021-03-06] MEDS ORDERED: hydrALAZINE HCL 20 MG/ML VIAL IV ONE (16:02)
[2021-03-06] MEDS ORDERED: CALCIUM 600MG + VIT D 400 IU TAB PO SCH (16:30)
[2021-03-06] MEDS ORDERED: NON-FORMULARY MEDICATION (Vit C,E-Zn-Coppr-Lutein-Zeaxan [Preservision Areds-2] 250-200-40 PO SCH (17:00)
[2021-03-06] MEDS ORDERED: levoFLOXacin/D5W 500 MG/100 ML BAG IV SCH (18:45)
--- NOTE | 2021-03-06 20:44 | Communication Note ---
Date of Service: March 06, 2021 Called by bedside nursing earlier shift for concerns of left ear warmth and tenderness. Upon my presentation to bedside, patient's left ear was erythematous tender to the touch and warm; left ear canal with signs of excoriation no purulent material or exudate, mild erythema; tympanic membrane intact bilaterally without injection retraction or middle ear effusions. Discussed with patient, who endorsed that occasionally she will get very tender and warm ear from her hearing aids and will need to use eardrops to help limit/control this from worsening. Ordered Ciprodex 4 drops each ear twice daily for concerns of otitis externa. Resident Activity Tracking Resident Involvement: Resident Care Provided Care Provided: Adult [facility] Medicine
[2021-03-06] MEDS ORDERED: MONTELUKAST SODIUM 10 MG TABLET PO SCH (21:00)
[2021-03-06] MEDS ORDERED: PROPRANOLOL HCL 60 MG LA CAP PO SCH (21:00)
[2021-03-06] MEDS ORDERED: ENOXAPARIN INJ 40 MG/0.4 ML SYR SQ SCH (21:00)
[2021-03-06] MEDS ORDERED: CETIRIZINE HCL 10 MG TABLET PO SCH (21:00)
[2021-03-06] MEDS ORDERED: INSULIN GLARGINE SOLOSTAR 100 UNITS/ML 3 ML PEN SQ SCH (21:00)
[2021-03-06] MEDS ORDERED: diphenhydrAMINE 50 MG/ML VIAL IV STA (22:36)
--- NOTE | 2021-03-06 22:38 | Electrocardiogram Report ---
Test Reason : Blood Pressure : / mmHG Vent. Rate : 075 BPM Atrial Rate : 075 BPM P-R Int : 164 ms QRS Dur : 084 ms QT Int : 384 ms P-R-T Axes : 047 -50 045 degrees QTc Int : 428 ms Normal sinus rhythm Left axis deviation Possible Anterior infarct , age undetermined Abnormal ECG When compared with ECG of 26-OCT-2020 14:20, No significant change was found Confirmed by Jaime Kumar ([id number]) on 03/06/2021 10:37:45 PM Referred By: REFERRED SELF Confirmed By:Jaime Kumar
[2021-03-06] MEDS: CIPRO 0.3%/DEXAMETHASONE 0.1% OTIC SUSP 7.5ML OT SCH (22:59)
[2021-03-07] MEDS: SODIUM CHLORIDE 0.9% 1000ML 1,000 ML IV SCH (06:17)
[2021-03-07] MEDS ORDERED: ADVANCED PROBIOTIC 1250 MG CAPSULE PO SCH (06:30)
[2021-03-07] MEDS ORDERED: VENLAFAXINE HCL XR 37.5 MG CAPXR PO SCH (06:30)
[2021-03-07] MEDS ORDERED: VENLAFAXINE HCL XR 150 MG CAPXR PO SCH (06:30)
[2021-03-07] MEDS ORDERED: VENLAFAXINE HCL XR 75 MG CAPXR PO SCH (06:30)
[2021-03-07 07:31] VITALS: BP 129/66; PULSE 73; TEMP 99.1; O2SAT 91
[2021-03-07 07:40] LABS: Eosinophils % (auto) 5.9 %; Hematocrit (blood only) 35.5 % (37-47); Hemoglobin 12.5 g/dL (12.0-16.0); Immature Granulocytes # (auto) 0.02 K/uL (0.00-0.02); Immature Granulocytes % (auto) 0.4 %; Lymphocytes # (auto) 0.43 K/uL (1.2-3.4); Lymphocytes % (auto) 8.4 %; Mean Corpuscular Hemoglobin 32.4 pg (25-34); Mean Corpuscular Hgb Conc 35.2 g/dL (32-36); Mean Platelet Volume 9.5 fL (7.4-10.4); Monocytes # (auto) 0.64 K/uL (0.11-0.59); Monocytes % (auto) 12.5 %; Neutrophils # (auto) 3.71 K/uL (1.4-6.5); Neutrophils % (auto) 72.8 %; Platelet Count 212 K/uL (130-400); RDW Coefficient of Variation 13.9 % (11.5-14.5); RDW Standard Deviation 46.1 fL (36.4-46.3); Red Blood Count 3.86 M/uL (4.2-5.4)
[2021-03-07 08:02] LABS: BUN Creatinine Ratio 14.3 (10-20); Calcium 7.4 mg/dl (8.5-10.1); Creatinine Clr Calc Pharmacy 65.8 ml/min; Est GFR (African American) 104.4 ml/min; Est GFR (Non-African American) 90.1 ml/min; Potassium 3.3 mmol/L (3.5-5.1)
[2021-03-07 08:15] LABS: Estimated Average Glucose 174 mg/dl; Hemoglobin A1C 7.7 % (4.5-5.6)
[2021-03-07] MEDS: busPIRone 7.5 MG TAB PO SCH ×2 (08:39→12:15)
[2021-03-07] MEDS: CIPRO 0.3%/DEXAMETHASONE 0.1% OTIC SUSP 7.5ML OT SCH (08:40)
[2021-03-07] MEDS: PRIMIDONE 50 MG TAB PO SCH ×2 (08:40→12:15)
[2021-03-07] MEDS: INSULIN ASPART 100 UNITS/ML 3 ML PEN SC SCH ×2 (08:51→12:54)
[2021-03-07] MEDS ORDERED: UMECLIDINIUM BROMIDE 62.5MCG/BLISTER 7 PUFFS/INHALER INH SCH (09:00)
[2021-03-07] MEDS ORDERED: ARIPIprazole 1 MG/ML ORAL SOLN 150 ML BTL PO SCH (09:00)
[2021-03-07] MEDS ORDERED: FLUTICASONE PROPIONATE NA SPR 16 GM BTL SCH (09:00)
[2021-03-07] MEDS ORDERED: TAMOXIFEN CITRATE 10 MG TABLET PO SCH (09:00)
[2021-03-07] MEDS ORDERED: PANTOprazole 40 MG TAB PO SCH (09:00)
[2021-03-07] MEDS ORDERED: FLUTICASONE/VILANTEROL 100/25MCG 14 PUFFS/INHALER INH SCH (09:00)
[2021-03-07] MEDS ORDERED: cefTRIAXone SODIUM 1,000 MG in DEXTROSE 5% 50 ML IV SCH (10:00)
[2021-03-07] MEDS ORDERED: CEROVITE ADV FORMULA TAB PO SCH (11:30)
--- NOTE | 2021-03-07 11:47 | Discharge Summary ---
Date of Service March 07, 2021 Admission HPI Per Admitting Provider This is an 85-year-old female with past medical history insulin-dependent diabetes mellitus, hyperlipidemia, essential tremor, and recent cellulitis that presents today with generalized weakness. Patient is accompanied by her daughter, both are pleasant and good historians. Patient was here in the emergency room 02/24 with left lower extremity cellulitis, had been treated with Keflex and clindamycin without success. Patient was treated with Dalvance, had followed up in the ER on 02/26 with significant improvement in her infection. Patient apparently did well and continued and improved. She notes only a slight decrease in appetite over the past 48 hours. At approximately 4 AM the patient got up from bed to go to the bathroom. After she urinated she found she was too weak to get off the toilet. She tried to call for her daughter who lives with her but the daughter did not hear. Patient was on the toilet for approximately 2-1/2 hours before the daughter found her there. Patient did also suffer a mild fall, injuring her left leg. She did not strike her head or lose consciousness. Patient was subsequently brought to the emergency room for further evaluation. Patient was found to be febrile with a temp of 38.3 C. Vitals are otherwise stable with normal heart rate and blood pressure. She did complain of ongoing generalized weakness but denied any other focal symptomatology including flank pain, chest pain, abdominal pain. She denied any urinary symptoms such as dysuria, hematuria, or suprapubic pain. She has not had any diarrhea or constipation. She is starting to have a little bit of an appetite. She states that her leg is essentially back to its baseline with no further erythema or pain. Admission Exam Per Admitting Provider Constitutional: cooperative and comfortable; no acute distress Neck: trachea midline, no thyromegaly Respiratory: normal respiratory effort Auscultation: lungs clear to auscultation bilaterally; no crackles, no rales, no rhonchi and no wheezes Cardiovascular: Rate/Rhythm: regular rate and regular rhythm Heart Sounds: normal S1 and normal S2; no murmur Gastrointestinal (Abdomen): Inspection/Auscultation: abdomen normal to inspection Percussion/Palpation: abdomen soft; abdomen nontender, no guarding, abdomen not rigid and no hepatosplenomegaly Skin: no rashes, warm and dry Genitourinary: No flank pain or suprapubic tenderness Principal Diagnosis UTI Discharge Exam Constitutional WD/WN, vitals as above Respiratory normal respiratory effort, lungs clear to auscultation Cardiovascular RRR, no murmur, no edema Gastrointestinal (Abdomen) normal bowel sounds, soft, nontender, no hepatosplenomegaly Discharge Data Allergies Allergy/AdvReac Type Severity Reaction Status Date / Time sulfamethoxazole Allergy Severe swelling Verified 03/08/21 14:02 of ankles/hands/feet amoxicillin [From Augmentin] Allergy Intermediate Hives Verified 03/08/21 14:02 ceftriaxone Allergy Intermediate Rash, Verified 03/08/21 14:02 pruritis clavulanic acid Allergy Intermediate Hives Verified 03/08/21 14:02 [From Augmentin] doxycycline Allergy Intermediate Gastrointestinal Verified 03/08/21 14:02 Upset Consultations 03/06/21 11:28 ED Decision to Admit Stat Hospital Course (1) UTI (urinary tract infection): Joy Michel is an 85 year old female observed overnight at [facility] from March 06-2020 due to fever and weakness. She was diagnosed with a UTI. Initially treated with intravenous ceftriaxone which caused a drug-related rash and itching. This was switched to levofloxacin during your admission and will be switched to ciprofloxacin on discharge for total course of 5 days. No follow up from this hospitalization needed. (2) Cellulitis of left leg: (3) T1DM (type 1 diabetes mellitus): (4) Essential tremor: Total Time Total Time Spent Total Time Spent (In Minutes): 35 Discharge Plan Discharge Items Patient Disposition: Home - Self-Care Reason For Visit: UTI Discharge Diagnosis: Acute urine tract infection Activity: Resume your previous activity Non-emergency contact: Primary Care Provider Call non-emergency contact if: you have any medication questions and your symptoms worsen Follow-up/Referrals: Cris Sandoval MD [Primary Care Provider] - (Per Dr. Anthony Bermudez, no follow up is required. No appt scheduled for patient.) Diet: Carb Count or DM1 Addtl Attending Provider Instructions: You were observed overnight at [facility] from March 062020 due to fever and weakness. You were diagnosed with a urine tract infection. Initially treated with intravenous ceftriaxone (antibiotic) which caused a drug- related rash and itching. This was switched to levofloxacin during your admission and will be switched to ciprofloxacin on discharge for total course of 5 days. No follow up from this hospitalization needed. Kind regards, Dr Zach Bermudez Pending Studies at Discharge: Yes Stand-Alone Forms: My [facility], Smoking Cessation Medications and DC Order Prescriptions: Continued insulin lispro [Humalog KwikPen Insulin] 100 unit/mL insulin pen 25 unit SQ AC MDD 30 UNITS RF: 0 oxycodone 5 mg tablet 5 mg PO Q6H PRN (Reason: pain) 30 Days Qty: 90 RF: 0 buspirone 7.5 mg tablet 7.5 mg PO TIDM RF: 0 aripiprazole [Abilify] 2 mg tablet 4 mg PO QAM RF: 0 venlafaxine 150 mg capsule,extended release 24hr 150 mg PO DAILYBB RF: 0 venlafaxine 37.5 mg tablet extended release 24hr 37.5 mg PO DAILYBB RF: 0 Spiriva Respimat 1.25 mcg/actuation mist 2 puff INH QAM Qty: 4 RF: 5 albuterol sulfate 90 mcg/actuation HFA aerosol inhaler 2 puff inhalation Q6H PRN (Reason: shortness of breath or wheezing) Qty: 18 RF: 3 montelukast 10 mg tablet 10 mg PO HS Qty: 90 RF: 1 fluticasone propionate 50 mcg/actuation spray,suspension 1 - 2 spray intranasal DAILY Qty: 15.8 RF: 1 zonisamide 50 mg capsule 50 mg PO BID 30 Days Qty: 60 RF: 5 propranolol 120 mg capsule,extended release 24 hr 120 mg PO HS Qty: 30 RF: 5 levocetirizine 5 mg tablet 5 mg PO HS RF: 0 tamoxifen 20 mg tablet 20 mg PO DAILY RF: 0 alendronate 70 mg tablet 70 mg PO .weekly RF: 0 Probiotic 3 billion cell Capsule 3,000 mmu cells PO DAILYBB RF: 0 venlafaxine 75 mg capsule,extended release 24hr 75 mg PO DAILYBB RF: 0 Centrum Silver Women 8 mg iron-400 mcg-300 mcg tablet 1 tab PO QDL RF: 0 polyethylene glycol 3350 [Miralax] 17 gram powder in packet 17 g PO DAILY PRN (Reason: Constipation) RF: 0 calcium carbonate-vitamin D3 [Calcium 600 + D(3)] 600 mg(1,500mg) -200 unit Tablet 1 tab PO QDD RF: 0 PreserVision AREDS-2 320-497-48-1 [id number]-[id number]-mg capsule 1 tab PO BIDM RF: 0 primidone 50 mg tablet 200 mg PO TIDM RF: 0 pantoprazole [Protonix] 40 mg tablet,delayed release (DR/EC) 40 mg PO QAM RF: 0 Breo Ellipta 100-25 mcg/dose blister with device 1 inh inhalation QAM RF: 0 Lantus Solostar U-100 Insulin 100 unit/mL (3 mL) insulin pen 13 unit SQ HS Qty: 0 RF: 0 No Action prednisone 10 mg tablet See Rx Instructions PO QAM Qty: 10 RF: 0 Discharge Orders: Discharge Order (Routine); Ordered 03/07/21 Ordered By: Zach Biggs/Other Patient Handouts: Managing Type 1 Diabetes, A1C Admission Data Admit Date/Time: 03/06/21 11:40 Attending Provider: Zach Bermudez Admit Provider: Ruddy Rooney Primary Care Provider: Cris Sandoval Other Providers: Ruddy Rooney Other Interventions: Discharge Summary Assessment (RN) Last Done: 03/07/21 12:32 Coding Level of Care Code 04992 OBS Care - Discharge Diagnoses UTI (urinary tract infection) N39.0 Cellulitis of left leg L03.116 T1DM (type 1 diabetes mellitus) E10.9 Essential tremor G25.0
== END 2021-03-07 14:38 | disposition home or self-care (01) ==
LOC: ED 08:23 → SUATTDRO 11:40 → 3N 11:40 → INTOOBSV 11:40 → 3N 12:29
DX: N39.0 Urinary tract infection, site not specified; G89.29 Other chronic pain; Z88.8 Allergy status to other drugs, medicaments and biological substances; M19.90 Unspecified osteoarthritis, unspecified site; J45.909 Unspecified asthma, uncomplicated; Z79.4 Long term (current) use of insulin; G25.0 Essential tremor; Z79.51 Long term (current) use of inhaled steroids; Z88.1 Allergy status to other antibiotic agents; Z79.899 Other long term (current) drug therapy; Z88.2 Allergy status to sulfonamides; L03.116 Cellulitis of left lower limb; E78.5 Hyperlipidemia, unspecified; E10.9 Type 1 diabetes mellitus without complications; Z79.891 Long term (current) use of opiate analgesic

== ENCOUNTER 2023-01-07 16:05 | Observation (INO) ==
[2023-01-07 16:48] LABS: Basophils # (auto) 0.08 K/uL (0-0.2); Basophils % (auto) 1.2 %; Eosinophils # (auto) 0.22 K/uL (0-0.50); Eosinophils % (auto) 3.4 %; Hematocrit (blood only) 37.9 % (37.0-47.0); Hemoglobin 13.2 g/dl (12.0-16.0); Immature Granulocytes # (auto) 0.02 K/uL (0.01-0.20); Immature Granulocytes % (auto) 0.3 %; Lymphocytes # (auto) 0.96 K/uL (1.2-3.4); Lymphocytes % (auto) 14.8 %; Mean Corpuscular Hemoglobin 32.8 pg (25.0-34.0); Mean Corpuscular Hgb Conc 34.8 g/dL (32.0-36.0); Mean Corpuscular Volume 94.3 fL (80.0-100.0); Monocytes # (auto) 0.96 K/uL (0.11-0.59); Monocytes % (auto) 14.8 %; Neutrophils # (auto) 4.24 K/uL (1.40-6.50); Neutrophils % (auto) 65.5 %; Platelet Count 275 K/uL (130-400); RDW Coefficient of Variation 12.5 % (11.5-14.5); RDW Standard Deviation 43.7 fL (36.4-46.3); Red Blood Count 4.02 M/uL (4.20-5.40); White Blood Count 6.48 K/ul (4.8-10.8)
--- NOTE | 2023-01-07 16:59 | Emergency Department Note ---
History of Present Illness General Chief Complaint: Abdominal Pain Stated Complaint: ABDOMINAL PAIN Time Seen by Provider: 01/07/23 16:32 History of Present Illness Provider Complaint: abdominal pain Onset (ago): 1 day(s) Pain Consistency: constant Location: LLQ Severity: moderate Maximum Pain Intensity: 5 Current Pain Intensity: 5 Quality: + stabbing and + sharp Relieved By: + nothing Exacerbated By: + nothing Context: no foreign travel, no possible food poisoning, no sick contacts, no recent antibiotic use, no recent surgery/procedure or no recent injury Associated Symptoms: no nausea, no vomiting, no diarrhea, no fever, no chills, no constipation, no dysuria, no hematemesis, no hematochezia, no melena, no hematuria, no anorexia, no syncope, no headache, no back pain and no chest pain Home Medications Medication Instructions Recorded Confirmed Type buspirone 7.5 mg tablet 7.5 mg PO TIDM 02/26/19 01/07/23 History venlafaxine 150 mg 150 mg PO DAILYBB 06/30/19 01/07/23 History capsule,extended release 24 hr venlafaxine 37.5 mg 37.5 mg PO DAILYBB 06/30/19 01/07/23 History tablet,extended release 24 hr lactobacillus combination no.4 3 3,000 mmu cells PO DAILYBB 05/31/20 01/07/23 History billion cell capsule (Probiotic) multivit with 1 tab PO QDL 05/31/20 01/07/23 History zbdkoqni-uzjy-OP-lutein 8 mg iron-400 mcg-300 mcg tablet (Centrum Silver Women) venlafaxine 75 mg capsule,extended 75 mg PO DAILYBB 05/31/20 01/07/23 History release 24 hr vit C 250 mg-vit E 90 mg-zinc 40 1 tab PO BIDM 10/26/20 01/07/23 History mg-copper 1 mn-huelui-nbnamw capsule (PreserVision AREDS-2) tamoxifen 20 mg tablet 20 mg PO DAILY 12/23/20 01/07/23 History alendronate 70 mg tablet 70 mg PO .weekly 01/10/21 01/07/23 History polyethylene glycol 3350 17 gram 17 g PO DAILY PRN Constipation 01/10/21 01/07/23 History oral powder packet (Miralax) acetaminophen 500 mg tablet 1,000 mg PO DAILY 07/11/21 01/07/23 History (Tylenol Extra Strength) guaifenesin 600 mg tablet, 600 mg PO Q12H PRN Congestion 07/11/21 01/07/23 History extended release 12 hr (Mucinex) Spacer for Inhaler #1 ea 10/13/21 01/01/23 Rx aripiprazole 2 mg tablet (Abilify) 2 mg PO QAM 10/31/21 01/07/23 History albuterol sulfate 90 mcg/actuation 2 puff inhalation Q6H PRN 01/05/22 01/07/23 Rx aerosol inhaler shortness of breath or wheezing #18 grams fluticasone propionate 50 1 - 2 spray intranasal DAILY #15.8 01/05/22 01/07/23 Rx mcg/actuation nasal mL spray,suspension glucagon HCl 1 mg solution for 1 mg subcut Q20M PRN hypoglycemia 04/26/22 01/07/23 Rx injection (Glucagon (HCl) #1 ea Emergency Kit) furosemide 20 mg tablet (Lasix) 20 mg PO DAILY PRN edema #90 tabs 05/28/22 01/07/23 Rx pen needle, diabetic 32 gauge x #400 ea 06/05/22 01/01/23 Rx 5/32" (BD Trudy 2nd Gen Pen Needle) pantoprazole 40 mg tablet,delayed 40 mg PO BID #180 tabs 06/11/22 01/07/23 Rx release (Protonix) insulin lispro 100 unit/mL 30 unit (0.3 mL) subcut DAILY #2 07/25/22 01/07/23 Rx subcutaneous pen (Humalog KwikPen Boxes (U-100) Insulin) calcium carbonate 600 mg-vitamin 1 tab PO DAILY 07/31/22 01/07/23 History D3 5 mcg (200 unit) tablet (Calcium 600 + D(3)) insulin glargine 100 unit/mL (3 8 unit subcut HS 07/31/22 01/07/23 History mL) subcutaneous pen (Lantus Solostar U-100 Insulin) primidone 50 mg tablet 200 mg PO TID #1,080 tabs 08/10/22 01/07/23 Rx propranolol 80 mg capsule,24 80 mg PO HS 90 days #90 caps 08/10/22 01/07/23 Rx hr,extended release zonisamide 100 mg capsule 100 mg PO BID 90 days #180 caps 08/10/22 01/07/23 Rx Incentive Spirometer #1 ea 12/11/22 01/01/23 Rx fluticasone furoate 200 1 inh inhalation QAM #60 ea 12/25/22 01/07/23 Rx mcg-vilanterol 25 mcg/dose inhalation powder (Breo Ellipta) levocetirizine 5 mg tablet 5 mg PO HS PRN allergy symptoms 12/25/22 01/07/23 Rx #90 tabs montelukast 10 mg tablet 10 mg PO HS #90 tabs 12/25/22 01/07/23 Rx tiotropium bromide 1.25 2 puff inhalation QAM #4 grams 12/25/22 01/07/23 Rx mcg/actuation mist for inhalation (Spiriva Respimat) oxycodone 5 mg tablet 5 - 10 mg PO BID PRN Pain 01/07/23 01/07/23 History Allergies Allergy/AdvReac Type Severity Reaction Status Date / Time sulfamethoxazole Allergy Severe swelling Verified 01/01/23 13:59 of ankles/hands/feet amoxicillin [From Augmentin] Allergy Intermediate Hives Verified 01/01/23 13:59 ceftriaxone Allergy Intermediate Rash, Verified 01/01/23 13:59 pruritis clavulanic acid Allergy Intermediate Hives Verified 01/01/23 13:59 [From Augmentin] doxycycline Allergy Intermediate Gastrointestinal Verified 01/01/23 13:59 Upset benzoyl peroxide AdvReac Intermediate Rash Verified 01/01/23 13:59 ciprofloxacin AdvReac Unknown SEE COMMENT Verified 01/01/23 13:59 metronidazole AdvReac Unknown SEE COMMENT Verified 01/01/23 13:59 Past Med/Surg History Medical History Acid reflux Arthritis of knee, right Asthma Bronchiectasis Chronic constipation Chronic low back pain Chronic rhinitis Depression with anxiety Diverticular disease Dyslipidemia Essential tremor Hammer toe of second toe of right foot Hearing difficulty 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 White 06/08/2020 Family History Sister Diabetes Cancer Pancreatic cancer Family/Other Lung disease Brother Cancer Daughter Hypertension Asthma Mother Breast cancer Other No family history of adverse response to anesthesia No family history of bleeding disorder Social History Smoking Status: Never smoker Age Started Using Tobacco: 19; Age Quit Using Tobacco: 29; packs per day: 1; Second Hand Exposure: No; Hx Alcohol Use: Yes Alcohol type: wine Alcohol Intake Frequency Comment: 1-2 glasses per day Hx Substance Use: No Preferred Language: Chinese Communication Ability: Effective Visual Impairment: No Limitations Hearing Ability: Use of Hearing Aid Dietetics Teacher Required: No Beliefs That Will Affect Care: None marital status: / Current Living Situation: Family Current Living Situation Comment: lives with daughter current occupational status: retired Feels Safe at Home: Yes caffeine: Yes Dental Care, Regularly: Yes Physical Activity Frequency: Does not Exercise Seatbelt Use: always Sunscreen Use: Yes Assistive Devices: Walker Physical Exam Vital Signs: Vital Signs - 24 hr 01/07/23 16:21 01/07/23 16:28 01/07/23 18:32 Temperature 37 C Temperature Source Oral Pulse Rate 69 66 Pulse Rate [Apical ] 67 Pulse Rate from Sp O2 Sensor Pulse Rhythm [Apic al] Regular Respiratory Rate 16 16 Respiratory Effort / Characteristics Non-Labored Sponta neous Non-Labored Sponta neous Respiratory Depth Normal Normal Respiratory Patter n Regular Blood Pressure 163/74 H Blood Pressure [Ri ght Arm] 151/65 H Blood Pressure Selma n 103 Blood Pressure Selma n [Right Arm] 93 Blood Pressure Pos ition [Right Arm] Semi-fowlers Pulse Oximetry 96 94 Oxygen Delivery Me thod Room Air Room Air Sepsis Recent Feve r Within 48 Hours No Sepsis New/Unexpla ined Change in Men vikram Status No Sepsis Action Take n by Nursing No Action Required 01/07/23 19:38 01/07/23 20:37 01/07/23 20:00 Temperature Temperature Source Pulse Rate 72 70 Pulse Rate [Apical ] 74 Pulse Rate from Sp O2 Sensor 71 Pulse Rhythm [Apic al] Respiratory Rate 22 17 Respiratory Effort / Characteristics Non-Labored Sponta neous Respiratory Depth Normal Respiratory Patter n Blood Pressure 143/67 H Blood Pressure [Ri ght Arm] 171/74 H Blood Pressure Selma n 92 Blood Pressure Selma n [Right Arm] 106 Blood Pressure Pos ition [Right Arm] Pulse Oximetry 94 92 Oxygen Delivery Me thod Room Air Room Air Sepsis Recent Feve r Within 48 Hours Sepsis New/Unexpla ined Change in Men vikram Status Sepsis Action Take n by Nursing 01/07/23 21:00 Temperature Temperature Source Pulse Rate 77 Pulse Rate [Apical ] Pulse Rate from Sp O2 Sensor Pulse Rhythm [Apic al] Respiratory Rate 20 Respiratory Effort / Characteristics Respiratory Depth Respiratory Patter n Blood Pressure 137/62 Blood Pressure [Ri ght Arm] Blood Pressure Selma n 87 Blood Pressure Selma n [Right Arm] Blood Pressure Pos ition [Right Arm] Pulse Oximetry Oxygen Delivery Me thod Sepsis Recent Feve r Within 48 Hours Sepsis New/Unexpla ined Change in Men vikram Status Sepsis Action Take n by Nursing Physical Exam: Physical Exam GENERAL: oriented to person, place, and time. appears well-developed and well- nourished. HENT: Exam performed. - Head: Normocephalic and atraumatic. EYES: Conjunctivae and EOM are normal. Right eye exhibits no discharge. Left eye exhibits no discharge. No scleral icterus. NECK: Normal range of motion. Neck supple. No JVD present. CV: Normal rate, regular rhythm, normal heart sounds and intact distal pulses. There is no peripheral edema. Palpable radial pulses bue. PULM/CHEST: Effort normal and breath sounds normal. No respiratory distress. No stridor. no wheezes. no rales. ABD: The abdomen is soft. There is tenderness to palpation of the left lower quadrant. No guarding no rigidity. No distention. NEURO: Motor and sensation grossly intact. SKIN: Skin is warm and dry. He is not diaphoretic. PSYCH: normal mood and affect. Behavior is normal. Judgment and thought content normal. Course Course 1632: The patient was evaluated in room C1. A complete history and physical exam was performed Cardiac monitoring: An order was placed for continuous cardiac monitoring. The monitor shows a rate of 80 with sinus rhythm interpreted by me 1920: Vital signs stable. Labs show sodium 126. Imaging shows innumerable hepatic lesions concerning for metastatic disease and numerous lytic foci in the skeleton concerning for metastatic disease. Pathological fracture of the right posterior 11th rib. Patient does have a history of breast cancer. Daughter at bedside states that the patient had a lumpectomy done and takes tamoxifen for it. Patient's will be started on normal saline gently and have her sodium corrected gently. No seizure-like activity no need for hypertonic saline. Discussed CODE STATUS with the daughter at bedside who is the patient's POA and she states that the patient is DNR/DNI. Patient will be admitted to the [facility] team Dr. Arellano will be notified. Administered Medications Sodium Chloride (Nss 1000ml) 1,000 mls @ 125 mls/hr IV .Q8H ROBB Stop: 02/06/23 17:14 Last Admin: 01/07/23 17:11 Dose: 125 mls/hr Documented By: AB Discontinued Medications Ioversol (Optiray 350 100ml) 86 ml IV ONCE ONE Stop: 01/07/23 18:01 Last Admin: 01/07/23 18:00 Dose: 86 ml Documented By: STACY Morphine Sulfate (Morphine Sulfate 4 Mg/Ml 1 Ml Carp\\Vial) 4 mg IV NOW STA Stop: 01/07/23 19:28 Last Admin: 01/07/23 19:33 Dose: 4 mg Documented By: KEENAN Ondansetron HCl (Ondansetron Inj 2 Mg/Ml 2 Ml Vial) 4 mg IV NOW STA Stop: 01/07/23 19:28 Last Admin: 01/07/23 19:33 Dose: 4 mg Documented By: KEENAN Medical Decision Making Laboratory Data Attestation: I reviewed the patient's lab results. 01/07/23 16:18 01/07/23 16:18 Lab Results 01/07/23 01/07/23 01/07/23 Range/Units 16:18 16:18 19:11 WBC 6.48 (4.8-10.8) K/ul RBC 4.02 L (4.20-5.40) M/uL Hgb 13.2 (12.0-16.0) g/dl Hct 37.9 (37.0-47.0) % MCV 94.3 (80.0-100.0) fL MCH 32.8 (25.0-34.0) pg MCHC 34.8 (32.0-36.0) g/dL RDW Std Deviation 43.7 (36.4-46.3) fL RDW Coeff of Nan 12.5 (11.5-14.5) % Plt Count 275 (130-400) K/uL MPV 10.0 (9.4-12.4) fL Immature Gran % (Auto) 0.3 % Neut % (Auto) 65.5 % Lymph % (Auto) 14.8 % Gilmer % (Auto) 14.8 % Eos % (Auto) 3.4 % Baso % (Auto) 1.2 % Neut # (Auto) 4.24 (1.40-6.50) K/uL Lymph # (Auto) 0.96 L (1.2-3.4) K/uL Gilmer # (Auto) 0.96 H (0.11-0.59) K/uL Eos # (Auto) 0.22 (0-0.50) K/uL Baso # (Auto) 0.08 (0-0.2) K/uL Immature Gran # (Auto) 0.02 (0.01-0.20) K/uL Sodium 126 L (136-145) mmol/L Potassium 4.1 (3.5-5.1) mmol/L Chloride 95 L (98-107) mmol/L Carbon Dioxide 26 (21-32) mmol/L Anion Gap 5 (3-11) BUN 16 (6-23) mg/dl Creatinine 0.63 (0.6-1.2) mg/dl Est Cr Clr Drug Dosing Not Reportable Est GFR ( Amer) 94.1 ml/min Est GFR (Non-Af Amer) 81.2 ml/min BUN/Creatinine Ratio 25.4 H (10-20) Glucose 264 H (70-99(Fasting)) mg/dl Calcium 8.7 (8.6-10.3) mg/dl Total Bilirubin 0.6 (0.2-1.0) mg/dl AST 63 H (13-39) U/L ALT 47 (7-52) U/L Alkaline Phosphatase 431 H (34-104) U/L Total Protein 5.8 L (6.0-8.3) gm/dl Albumin 3.5 (3.4-5.0) gm/dl Globulin 2.3 L (2.5-4.0) gm/dl Albumin/Globulin Ratio 1.5 (0.9-2) Lipase 17 (11-82) U/L Urine Color Yellow Urine Appearance Clear (Clear) Urine pH 7.0 (4.5-7.5) Ur Specific [place] 1.010 (1.000-1.030) Urine Protein Negative (Negative) Urine Glucose (UA) 1+ H (Negative) Urine Ketones Negative (Negative) Urine Blood Negative (Negative) Urine Nitrite Negative (Negative) Urine Bilirubin Negative (Negative) Urine Urobilinogen Negative (Negative) Ur Leukocyte Esterase Negative (Negative) SARS-CoV-2, RNA, NAAT (NEGATIVE) 01/07/23 Range/Units 19:25 WBC (4.8-10.8) K/ul RBC (4.20-5.40) M/uL Hgb (12.0-16.0) g/dl Hct (37.0-47.0) % MCV (80.0-100.0) fL MCH (25.0-34.0) pg MCHC (32.0-36.0) g/dL RDW Std Deviation (36.4-46.3) fL RDW Coeff of Nan (11.5-14.5) % Plt Count (130-400) K/uL MPV (9.4-12.4) fL Immature Gran % (Auto) % Neut % (Auto) % Lymph % (Auto) % Gilmer % (Auto) % Eos % (Auto) % Baso % (Auto) % Neut # (Auto) (1.40-6.50) K/uL Lymph # (Auto) (1.2-3.4) K/uL Gilmer # (Auto) (0.11-0.59) K/uL Eos # (Auto) (0-0.50) K/uL Baso # (Auto) (0-0.2) K/uL Immature Gran # (Auto) (0.01-0.20) K/uL Sodium (136-145) mmol/L Potassium (3.5-5.1) mmol/L Chloride (98-107) mmol/L Carbon Dioxide (21-32) mmol/L Anion Gap (3-11) BUN (6-23) mg/dl Creatinine (0.6-1.2) mg/dl Est Cr Clr Drug Dosing Est GFR ( Amer) ml/min Est GFR (Non-Af Amer) ml/min BUN/Creatinine Ratio (10-20) Glucose (70-99(Fasting)) mg/dl Calcium (8.6-10.3) mg/dl Total Bilirubin (0.2-1.0) mg/dl AST (13-39) U/L ALT (7-52) U/L Alkaline Phosphatase (34-104) U/L Total Protein (6.0-8.3) gm/dl Albumin (3.4-5.0) gm/dl Globulin (2.5-4.0) gm/dl Albumin/Globulin Ratio (0.9-2) Lipase (11-82) U/L Urine Color Urine Appearance (Clear) Urine pH (4.5-7.5) Ur Specific [place] (1.000-1.030) Urine Protein (Negative) Urine Glucose (UA) (Negative) Urine Ketones (Negative) Urine Blood (Negative) Urine Nitrite (Negative) Urine Bilirubin (Negative) Urine Urobilinogen (Negative) Ur Leukocyte Esterase (Negative) SARS-CoV-2, RNA, NAAT NEGATIVE (NEGATIVE) [facility] Narrative 1632: The patient was evaluated in room C1. A complete history and physical exam was performed Cardiac monitoring: An order was placed for continuous cardiac monitoring. The monitor shows a rate of 80 with sinus rhythm interpreted by me 1920: Vital signs stable. Labs show sodium 126. Imaging shows innumerable hepatic lesions concerning for metastatic disease and numerous lytic foci in the skeleton concerning for metastatic disease. Pathological fracture of the right posterior 11th rib. Patient does have a history of breast cancer. Daughter at bedside states that the patient had a lumpectomy done and takes tamoxifen for it. Patient's will be started on normal saline gently and have her sodium corrected gently. No seizure-like activity no need for hypertonic saline. Discussed CODE STATUS with the daughter at bedside who is the patient's POA and she states that the patient is DNR/DNI. Patient will be admitted to the [facility] team Dr. Arellano will be notified. 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, Pathologic rib fracture Patient Disposition: Admitted As Inpatient Forms Stand Alone Forms: My [facility] Prescriptions Prescriptions: No Action acetaminophen [Tylenol Extra Strength] 500 mg tablet 1,000 mg PO DAILY guaifenesin [Mucinex] 600 mg tablet extended release 12hr 600 mg PO Q12H PRN (Reason: Congestion) furosemide [Lasix] 20 mg tablet 20 mg PO DAILY PRN (Reason: edema) Qty: 90 1RF (DME) pen needle, diabetic [BD Trudy 2nd Gen Pen Needle] 32 gauge x 5/32" needle See Rx Instructions .Route Qty: 400 3RF Rx Instructions: Use QID with insulin injections pantoprazole [Protonix] 40 mg tablet,delayed release (DR/EC) 40 mg PO BID Qty: 180 3RF insulin lispro [Humalog KwikPen Insulin] 100 unit/mL insulin pen 30 unit SQ DAILY MDD 30 UNITS Qty: 2 3RF Rx Instructions: Inject per sliding scale; TDD 30 units (DME) Incentive Spirometer Misc See Rx Instructions .Route Qty: 1 0RF Rx Instructions: use as directed BOGDAN 99 buspirone 7.5 mg tablet 7.5 mg PO TIDM venlafaxine 150 mg capsule,extended release 24hr 150 mg PO DAILYBB Rx Instructions: TOTAL DOSE 262.5 MG--TAKE WITH 75 MG AND 37.5 MG TABS. venlafaxine 37.5 mg tablet extended release 24hr 37.5 mg PO DAILYBB Rx Instructions: TOTAL DOSE= 262.5 MG--TAKE WITH 75 MG AND 150 MG TABS. aripiprazole [Abilify] 2 mg tablet 2 mg PO QAM Lantus Solostar U-100 Insulin 100 unit/mL (3 mL) insulin pen 8 unit SQ HS fluticasone furoate-vilanterol [Breo Ellipta] 200-25 mcg/dose blister with device 1 inh INH QAM Qty: 60 12RF Spiriva Respimat 1.25 mcg/actuation mist 2 puff INH QAM Qty: 4 12RF montelukast 10 mg tablet 10 mg PO HS Qty: 90 4RF levocetirizine 5 mg tablet 5 mg PO HS PRN (Reason: allergy symptoms) Qty: 90 1RF primidone 50 mg tablet 200 mg PO TID Qty: 1080 3RF propranolol 80 mg capsule,extended release 24hr 80 mg PO HS 90 Days Qty: 90 3RF zonisamide 100 mg capsule 100 mg PO BID 90 Days Qty: 180 3RF Glucagon (HCl) Emergency Kit 1 mg recon soln 1 mg subcut Q20M PRN (Reason: hypoglycemia) Qty: 1 5RF Rx Instructions: until target blood sugar attained tamoxifen 20 mg tablet 20 mg PO DAILY Rx Instructions: take with full glass of water alendronate 70 mg tablet 70 mg PO .weekly albuterol sulfate 90 mcg/actuation HFA aerosol inhaler 2 puff inhalation Q6H PRN (Reason: shortness of breath or wheezing) Qty: 18 3RF fluticasone propionate 50 mcg/actuation spray,suspension 1 - 2 spray intranasal DAILY Qty: 15.8 3RF (DME) Spacer for Inhaler Misc See Rx Instructions .Route Qty: 1 1RF Rx Instructions: To use with Albuterol inhaler Probiotic 3 billion cell Capsule 3,000 mmu cells PO DAILYBB venlafaxine 75 mg capsule,extended release 24hr 75 mg PO DAILYBB Rx Instructions: TOTAL DOSE 262.5 MG--TAKE WITH 150 MG AND 37.5 MG TABS. Centrum Silver Women 8 mg iron-400 mcg-300 mcg tablet 1 tab PO QDL polyethylene glycol 3350 [Miralax] 17 gram powder in packet 17 g PO DAILY PRN (Reason: Constipation) PreserVision AREDS-2 [id number]-mg capsule 1 tab PO BIDM Rx Instructions: administer with meals; breakfast and dinner calcium carbonate-vitamin D3 [Calcium 600 + D(3)] 600 mg-5 mcg (200 unit) tablet 1 tab PO DAILY oxycodone 5 mg tablet 5 - 10 mg PO BID PRN (Reason: Pain) Referrals Referrals: Cris Sandoval MD [Primary Care Provider] -
[2023-01-07 17:01] LABS: Alanine Aminotransferase 47 U/L (7-52); Albumin Globulin Ratio 1.5 (0.9-2); Albumin Level 3.5 gm/dl (3.4-5.0); Alkaline Phosphatase 431 U/L (34-104); Anion Gap 5 (3-11); Aspartate Aminotransferase 63 U/L (13-39); BUN Creatinine Ratio 25.4 (10-20); Bilirubin,Total 0.6 mg/dl (0.2-1.0); Blood Urea Nitrogen 16 mg/dl (6-23); Calcium 8.7 mg/dl (8.6-10.3); Carbon Dioxide 26 mmol/L (21-32); Chloride 95 mmol/L (98-107); Est GFR (African American) 94.1 ml/min; Est GFR (Non-African American) 81.2 ml/min; Globulin 2.3 gm/dl (2.5-4.0); Glucose 264 mg/dl (70-99(Fasting)); Lipase 17 U/L (11-82); Potassium 4.1 mmol/L (3.5-5.1); Sodium 126 mmol/L (136-145); Total Protein 5.8 gm/dl (6.0-8.3)
[2023-01-07] MEDS ORDERED: SODIUM CHLORIDE 0.9% 1000ML 1,000 ML IV SCH (17:15)
[2023-01-07] MEDS ORDERED: OPTIRAY 350 100ml IV ONE (18:00)
--- NOTE | 2023-01-07 19:13 | CT Scan Report ---
CT abd pelvis IV con only CLINICAL HISTORY: llq pain TECHNIQUE: Helical axial images of the abdomen and pelvis were obtained and displayed. Automated dose lowering techniques and/or adjustment according to patient size were utilized for this exam. This e xam was performed with intravenous contrast. CT DOSE: 503.00 mGy.cm COMPARISON: Comparison is made to CT abdomen pelvis 03/24/2020 FINDINGS: Lower chest: Bibasilar atelectasis versus scarring is seen. Cardiomegaly is seen. Liver: There is extensive heterogeneity of the liver most prominent in the right lobe. Gallbladder and biliary tree: Cholelithiasis is seen without evidence of cholecystitis. No intra- or extrahepatic biliary ductal dilation. Pancreas: Unremarkable, no focal lesions. Spleen: Unremarkable. Adrenals: Unremarkable. Kidneys and ureters: Subcentimeter right renal hypodensity likely represents a cyst. Bladder: Unremarkable. Reproductive organs: Unremarkable. Bowel: The appendix is normal. There is a small hiatal hernia. Lymph nodes Retroperitoneal: Unremarkable. Pelvic: Unremarkable. Mesenteric: Unremarkable. Peritoneum: Normal. Vessels: Atherosclerotic calcifications are seen. Abdominal wall: Unremarkable. Bones: Degenerative changes in the visualized spine. Scoliosis is seen. There is a subacute-appearing fracture of the right 11th rib with some enlargement of the cortex, pathologic fracture cannot be ex cluded. Partial visualization of subacute appearing left rib fractures. A few lytic lesions are seen most prominently in the left iliac crest and right pubic symphysis. IMPRESSION: 1. Innumerable hepatic lesions are concerning for metastatic disease. There is partial visualization of a density in the left breast compatible with previous treatment site of breast cancer. There are also numerous lytic foci in the skeleton which are also concerning for metastatic disease. 2. Pathologic appearing fracture of the right posterior 11th rib. Subacute appearing fractures of th e left ribs which may be mechanical. 3. Additional findings as above. ACT 112: Negative or not required by law. Electronically signed by: Abdiaziz Weiss M.D. 01/07/2023 7:11 PM
[2023-01-07] MEDS ORDERED: MoRPHine SULFATE 4 MG/ML 1 ML CARP\\VIAL IV STA (19:27)
[2023-01-07] MEDS ORDERED: ONDANSETRON INJ 2 MG/ML 2 ML VIAL IV STA (19:27)
[2023-01-07 19:40] LABS: Appearance Urine Clear (Clear); Bilirubin Urine Negative (Negative); Blood Urine Negative (Negative); Color Urine Yellow; Glucose Urine UA 1+ (Negative); Ketones Urine Negative (Negative); Leukocyte Esterase Urine Negative (Negative); Nitrite Urine Negative (Negative); Protein Urine Negative (Negative); Urobilinogen Urine Negative (Negative)
--- NOTE | 2023-01-07 21:04 | History & Physical Report ---
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 No further aggressive treatment Control pain with Tylenol and oxycodone Multiple noted rib fractures to be pathologic Depression with anxiety- Continue aripiprazole, buspirone GERD- Continue pantoprazole Diabetes mellitus- H glargine 8 units old long-acting insulin Placed on Accu-Cheks with NovoLog SSI CODE STATUS: MANAGER [employer]OYEE BENEFITS, will except IV fluids History of Present Illness Chief Complaint: The patient presents to the emergency department with complaints of abdominal pain, decreased oral intake over the past several days Primary Care Provider: Cris Sandoval MD The patient is an 87-year-old female with a past medical history including metastatic breast cancer, pathologic rib fractures, depression with anxiety, hearing difficulty, diabetes mellitus, chronic constipation, dyslipidemia, essential tremor, diverticular disease, umbilical hernia and parkinsonism. She presents to the emergency department with abdominal discomfort with decreased oral intake. 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 Allergies Allergy/AdvReac Type Severity Reaction Status Date / Time sulfamethoxazole Allergy Severe swelling Verified 01/01/23 13:59 of ankles/hands/feet amoxicillin [From Augmentin] Allergy Intermediate Hives Verified 01/01/23 13:59 ceftriaxone Allergy Intermediate Rash, Verified 01/01/23 13:59 pruritis clavulanic acid Allergy Intermediate Hives Verified 01/01/23 13:59 [From Augmentin] doxycycline Allergy Intermediate Gastrointestinal Verified 01/01/23 13:59 Upset benzoyl peroxide AdvReac Intermediate Rash Verified 01/01/23 13:59 ciprofloxacin AdvReac Unknown SEE COMMENT Verified 01/01/23 13:59 metronidazole AdvReac Unknown SEE COMMENT Verified 01/01/23 13:59 Home Medications Medication Instructions Recorded Confirmed Type buspirone 7.5 mg tablet 7.5 mg PO TIDM 02/26/19 01/07/23 History venlafaxine 150 mg 150 mg PO DAILYBB 06/30/19 01/07/23 History capsule,extended release 24 hr venlafaxine 37.5 mg 37.5 mg PO DAILYBB 06/30/19 01/07/23 History tablet,extended release 24 hr lactobacillus combination no.4 3 3,000 mmu cells PO DAILYBB 05/31/20 01/07/23 History billion cell capsule (Probiotic) multivit with 1 tab PO QDL 05/31/20 01/07/23 History wiyaatbr-juah-UK-lutein 8 mg iron-400 mcg-300 mcg tablet (Centrum Silver Women) venlafaxine 75 mg capsule,extended 75 mg PO DAILYBB 05/31/20 01/07/23 History release 24 hr vit C 250 mg-vit E 90 mg-zinc 40 1 tab PO BIDM 10/26/20 01/07/23 History mg-copper 1 lk-zcnotl-fyxjsg capsule (PreserVision AREDS-2) tamoxifen 20 mg tablet 20 mg PO DAILY 12/23/20 01/07/23 History alendronate 70 mg tablet 70 mg PO .weekly 01/10/21 01/07/23 History polyethylene glycol 3350 17 gram 17 g PO DAILY PRN Constipation 01/10/21 01/07/23 History oral powder packet (Miralax) acetaminophen 500 mg tablet 1,000 mg PO DAILY 07/11/21 01/07/23 History (Tylenol Extra Strength) guaifenesin 600 mg tablet, 600 mg PO Q12H PRN Congestion 07/11/21 01/07/23 History extended release 12 hr (Mucinex) Spacer for Inhaler #1 ea 10/13/21 01/01/23 Rx aripiprazole 2 mg tablet (Abilify) 2 mg PO QAM 10/31/21 01/07/23 History albuterol sulfate 90 mcg/actuation 2 puff inhalation Q6H PRN 01/05/22 01/07/23 Rx aerosol inhaler shortness of breath or wheezing #18 grams fluticasone propionate 50 1 - 2 spray intranasal DAILY #15.8 01/05/22 01/07/23 Rx mcg/actuation nasal mL spray,suspension glucagon HCl 1 mg solution for 1 mg subcut Q20M PRN hypoglycemia 04/26/22 01/07/23 Rx injection (Glucagon (HCl) #1 ea Emergency Kit) furosemide 20 mg tablet (Lasix) 20 mg PO DAILY PRN edema #90 tabs 05/28/22 01/07/23 Rx pen needle, diabetic 32 gauge x #400 ea 06/05/22 01/01/23 Rx 32" (BD Trudy 2nd Gen Pen Needle) pantoprazole 40 mg tablet,delayed 40 mg PO BID #180 tabs 06/11/22 01/07/23 Rx release (Protonix) insulin lispro 100 unit/mL 30 unit (0.3 mL) subcut DAILY #2 07/25/22 01/07/23 Rx subcutaneous pen (Humalog KwikPen Boxes (U-100) Insulin) calcium carbonate 600 mg-vitamin 1 tab PO DAILY 07/31/22 01/07/23 History D3 5 mcg (200 unit) tablet (Calcium 600 + D(3)) insulin glargine 100 unit/mL (3 8 unit subcut HS 07/31/22 01/07/23 History mL) subcutaneous pen (Lantus Solostar U-100 Insulin) primidone 50 mg tablet 200 mg PO TID #1,080 tabs 08/10/22 01/07/23 Rx propranolol 80 mg capsule,24 80 mg PO HS 90 days #90 caps 08/10/22 01/07/23 Rx hr,extended release zonisamide 100 mg capsule 100 mg PO BID 90 days #180 caps 08/10/22 01/07/23 Rx Incentive Spirometer #1 ea 12/11/22 01/01/23 Rx fluticasone furoate 200 1 inh inhalation QAM #60 ea 12/25/22 01/07/23 Rx mcg-vilanterol 25 mcg/dose inhalation powder (Breo Ellipta) levocetirizine 5 mg tablet 5 mg PO HS PRN allergy symptoms 12/25/22 01/07/23 Rx #90 tabs montelukast 10 mg tablet 10 mg PO HS #90 tabs 12/25/22 01/07/23 Rx tiotropium bromide 1.25 2 puff inhalation QAM #4 grams 12/25/22 01/07/23 Rx mcg/actuation mist for inhalation (Spiriva Respimat) oxycodone 5 mg tablet 5 - 10 mg PO BID PRN Pain 01/07/23 01/07/23 History Past Med/Surg History Medical History Acid reflux Arthritis of knee, right Asthma Bronchiectasis Chronic constipation Chronic low back pain Chronic rhinitis Depression with anxiety Diverticular disease Dyslipidemia Essential tremor Hammer toe of second toe of right foot Hearing difficulty 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 White 06/08/2020 Family History Sister Diabetes Cancer Pancreatic cancer Family/Other Lung disease Brother Cancer Daughter Hypertension Asthma Mother Breast cancer Other No family history of adverse response to anesthesia No family history of bleeding disorder Social History Smoking Status: Never smoker Age Started Using Tobacco: 19; Age Quit Using Tobacco: 29; packs per day: 1; Second Hand Exposure: No; Hx Alcohol Use: Yes Alcohol type: wine Alcohol Intake Frequency Comment: 1-2 glasses per day Hx Substance Use: No Preferred Language: Marshallese Communication Ability: Effective Visual Impairment: No Limitations Hearing Ability: Use of Hearing Aid Specialty Sales Consultant Required: No Beliefs That Will Affect Care: None marital status: / Current Living Situation: Family Current Living Situation Comment: lives with daughter current occupational status: retired Feels Safe at Home: Yes caffeine: Yes Dental Care, Regularly: Yes Physical Activity Frequency: Does not Exercise Seatbelt Use: always Sunscreen Use: Yes Assistive Devices: Walker Review of Systems Review of Systems: The patient denies chest pain, palpitations, shortness of breath, dyspnea on exertion, cough, lower extremity swelling, sore throat, fevers, chills, sweats, vomiting, blood in urine or stool, dysuria, urinary frequency or urgency, lightheadedness, dizziness, headache, memory loss, loss of consciousness, rash, abnormal bruising or bleeding, imbalance, focal weakness, numbness or tingling in arms or legs, The review of systems is otherwise negative other than for that already noted above, and at least 10 systems have been reviewed. Physical Exam Physical Exam: The patient is awake, alert and oriented 3, well developed and well nourished, normocephalic and atraumatic, lying in bed and in no acute distress. HEENT--PERRL, EOMI, mucous membranes and oropharynx moderately dry. Neck--supple. No JVD. No bruits. Thyroid normal, trachea midline, no adenopathy. Heart--normal S1 and S2. No murmurs, rubs or gallops. Lungs--clear bilaterally, no respiratory distress, no accessory muscle use. Abdomen--normal bowel sounds and soft. Nontender. mildly distended and tympanitic, no hernias or masses, no organomegaly. Extremities--no cyanosis or clubbing. No edema. Dermatologic--normal skin turgor, normal color, no abnormal lymph nodes, no rash. Neurologic--cranial nerves II through XII grossly intact. Rheumatologic--normal range of motion. Psychiatric--normal affect. Results & Data Results & Data Vital Signs (Past 12 Hours) Vital Signs Temp Pulse Pulse Resp BP BP Pulse Ox 01/07/23 20:00 70 17 143/67 H 92 01/07/23 20:37 72 01/07/23 19:38 74 22 171/74 H 94 01/07/23 18:32 67 16 151/65 H 94 01/07/23 16:28 66 01/07/23 16:21 37 C 69 16 163/74 H 96 O2 Del Method 01/07/23 20:00 Room Air 01/07/23 20:37 01/07/23 19:38 Room Air 01/07/23 18:32 Room Air 01/07/23 16:28 01/07/23 16:21 Room Air Laboratory Results Laboratory Results WBC 6.48 K/ul (4.8-10.8) 01/07/23 16:18 RBC 4.02 M/uL (4.20-5.40) L 01/07/23 16:18 Hgb 13.2 g/dl (12.0-16.0) 01/07/23 16:18 Hct 37.9 % (37.0-47.0) 01/07/23 16:18 MCV 94.3 fL (80.0-100.0) 01/07/23 16:18 MCH 32.8 pg (25.0-34.0) 01/07/23 16:18 MCHC 34.8 g/dL (32.0-36.0) 01/07/23 16:18 RDW Std Deviation 43.7 fL (36.4-46.3) 01/07/23 16:18 RDW Coeff of Nan 12.5 % (11.5-14.5) 01/07/23 16:18 Plt Count 275 K/uL (130-400) 01/07/23 16:18 MPV 10.0 fL (9.4-12.4) 01/07/23 16:18 Immature Gran % (Auto) 0.3 % 01/07/23 16:18 Neut % (Auto) 65.5 % 01/07/23 16:18 Lymph % (Auto) 14.8 % 01/07/23 16:18 Curry % (Auto) 14.8 % 01/07/23 16:18 Eos % (Auto) 3.4 % 01/07/23 16:18 Baso % (Auto) 1.2 % 01/07/23 16:18 Neut # (Auto) 4.24 K/uL (1.40-6.50) 01/07/23 16:18 Lymph # (Auto) 0.96 K/uL (1.2-3.4) L 01/07/23 16:18 Curry # (Auto) 0.96 K/uL (0.11-0.59) H 01/07/23 16:18 Eos # (Auto) 0.22 K/uL (0-0.50) 01/07/23 16:18 Baso # (Auto) 0.08 K/uL (0-0.2) 01/07/23 16:18 Immature Gran # (Auto) 0.02 K/uL (0.01-0.20) 01/07/23 16:18 Sodium 126 mmol/L (136-145) L 01/07/23 16:18 Potassium 4.1 mmol/L (3.5-5.1) 01/07/23 16:18 Chloride 95 mmol/L (98-107) L 01/07/23 16:18 Carbon Dioxide 26 mmol/L (21-32) 01/07/23 16:18 Anion Gap 5 (3-11) 01/07/23 16:18 BUN 16 mg/dl (6-23) 01/07/23 16:18 Creatinine 0.63 mg/dl (0.6-1.2) 01/07/23 16:18 Est Cr Clr Drug Dosing Not Reportable 01/07/23 16:18 Est GFR ( Amer) 94.1 ml/min 01/07/23 16:18 Est GFR (Non-Af Amer) 81.2 ml/min 01/07/23 16:18 BUN/Creatinine Ratio 25.4 (10-20) H 01/07/23 16:18 Glucose 264 mg/dl (70-99(Fasting)) H 01/07/23 16:18 Calcium 8.7 mg/dl (8.6-10.3) 01/07/23 16:18 Total Bilirubin 0.6 mg/dl (0.2-1.0) 01/07/23 16:18 AST 63 U/L (13-39) H 01/07/23 16:18 ALT 47 U/L (7-52) 01/07/23 16:18 Alkaline Phosphatase 431 U/L (34-104) H 01/07/23 16:18 Total Protein 5.8 gm/dl (6.0-8.3) L 01/07/23 16:18 Albumin 3.5 gm/dl (3.4-5.0) 01/07/23 16:18 Globulin 2.3 gm/dl (2.5-4.0) L 01/07/23 16:18 Albumin/Globulin Ratio 1.5 (0.9-2) 01/07/23 16:18 Lipase 17 U/L (11-82) 01/07/23 16:18 Urine Color Yellow 01/07/23 19:11 Urine Appearance Clear (Clear) 01/07/23 19:11 Urine pH 7.0 (4.5-7.5) 01/07/23 19:11 Ur Specific [place] 1.010 (1.000-1.030) 01/07/23 19:11 Urine Protein Negative (Negative) 01/07/23 19:11 Urine Glucose (UA) 1+ (Negative) H 01/07/23 19:11 Urine Ketones Negative (Negative) 01/07/23 19:11 Urine Blood Negative (Negative) 01/07/23 19:11 Urine Nitrite Negative (Negative) 01/07/23 19:11 Urine Bilirubin Negative (Negative) 01/07/23 19:11 Urine Urobilinogen Negative (Negative) 01/07/23 19:11 Ur Leukocyte Esterase Negative (Negative) 01/07/23 19:11 SARS-CoV-2, RNA, NAAT NEGATIVE (NEGATIVE) 01/07/23 19:25 Impressions Abdomen/Pelvis CT 01/07/23 16:54 CT abd pelvis IV con only CLINICAL HISTORY: llq pain TECHNIQUE: Helical axial images of the abdomen and pelvis were obtained and displayed. Automated dose lowering techniques and/or adjustment according to patient size were utilized for this exam. This exam was performed with intravenous contrast. CT DOSE: 503.00 mGy.cm COMPARISON: Comparison is made to CT abdomen pelvis 03/24/2020 FINDINGS: Lower chest: Bibasilar atelectasis versus scarring is seen. Cardiomegaly is seen. Liver: There is extensive heterogeneity of the liver most prominent in the right lobe. Gallbladder and biliary tree: Cholelithiasis is seen without evidence of cholecystitis. No intra- or extrahepatic biliary ductal dilation. Pancreas: Unremarkable, no focal lesions. Spleen: Unremarkable. Adrenals: Unremarkable. Kidneys and ureters: Subcentimeter right renal hypodensity likely represents a cyst. Bladder: Unremarkable. Reproductive organs: Unremarkable. Bowel: The appendix is normal. There is a small hiatal hernia. Lymph nodes Retroperitoneal: Unremarkable. Pelvic: Unremarkable. Mesenteric: Unremarkable. Peritoneum: Normal. Vessels: Atherosclerotic calcifications are seen. Abdominal wall: Unremarkable. Bones: Degenerative changes in the visualized spine. Scoliosis is seen. There is a subacute-appearing fracture of the right 11th rib with some enlargement of the cortex, pathologic fracture cannot be excluded. Partial visualization of subacute appearing left rib fractures. A few lytic lesions are seen most prominently in the left iliac crest and right pubic symphysis. IMPRESSION: 1. Innumerable hepatic lesions are concerning for metastatic disease. There is partial visualization of a density in the left breast compatible with previous treatment site of breast cancer. There are also numerous lytic foci in the skeleton which are also concerning for metastatic disease. 2. Pathologic appearing fracture of the right posterior 11th rib. Subacute appearing fractures of the left ribs which may be mechanical. 3. Additional findings as above. ACT 112: Negative or not required by law. Electronically signed by: Abdiaziz Weiss M.D. 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
[2023-01-07] MEDS ORDERED: ENOXAPARIN INJ 30 MG/0.3 ML SYR SQ SCH (22:26)
[2023-01-07] MEDS ORDERED: ONDANSETRON INJ 2 MG/ML 2 ML VIAL IV PRN (22:26)
[2023-01-07] MEDS ORDERED: POLYETHYLENE (MIRALAX) 17 GM PACK PO PRN (22:26)
[2023-01-07] MEDS ORDERED: CARBOHYDRATES FOR HYPOGLYCEMIA PO PRN (22:26)
[2023-01-07] MEDS ORDERED: DEXTROSE 50% 50 ML SYRINGE IV PRN (22:26)
[2023-01-07] MEDS ORDERED: GLUCOSE 40% GEL 15 GM TUBE PO PRN (22:26)
[2023-01-07] MEDS ORDERED: MONTELUKAST SODIUM 10 MG TABLET PO SCH (22:26)
[2023-01-07] MEDS ORDERED: GLUCAGON FOR INJ 1 MG VIAL SQ PRN (22:26)
[2023-01-07] MEDS ORDERED: GLUCOSE 10 TAB/TUBE PO PRN (22:26)
[2023-01-07] MEDS ORDERED: PROPRANOLOL HCL LA 80 MG CAPCR PO SCH (22:26)
[2023-01-07] MEDS ORDERED: ALBUTEROL HFA 8 GM INHALER INH PRN (22:26)
[2023-01-07] MEDS: INSULIN ASPART PER UNIT CHARGE SC SCH (23:24)
[2023-01-08] MEDS: ZONISAMIDE 100 MG CAPSULE PO SCH ×2 (00:04→08:49)
[2023-01-08] MEDS: PANTOprazole 40 MG TAB PO SCH ×2 (00:04→08:49)
[2023-01-08] MEDS: PRIMIDONE 50 MG TAB PO SCH ×3 (00:04→13:02)
[2023-01-08] MEDS: NSS + 20MEQ KCL 20 MEQ/1,000 ML BAG IV SCH ×2 (00:41→10:27)
[2023-01-08] MEDS ORDERED: ADVANCED PROBIOTIC 1250 MG CAPSULE PO SCH (06:30)
[2023-01-08] MEDS ORDERED: VENLAFAXINE HCL XR 75 MG CAPXR PO SCH (06:30)
[2023-01-08] MEDS ORDERED: VENLAFAXINE HCL XR 150 MG CAPXR PO SCH (06:30)
[2023-01-08] MEDS ORDERED: VENLAFAXINE HCL XR 37.5 MG CAPXR PO SCH (06:30)
[2023-01-08 07:36] VITALS: PULSE 69; O2SAT 96
[2023-01-08 07:59] LABS: Albumin Level 3.3 gm/dl (3.4-5.0); BUN Creatinine Ratio 24.5 (10-20); Calcium 8.4 mg/dl (8.6-10.3); Creatinine Clr Calc Pharmacy 71.3 ml/min; Est GFR (African American) 99.6 ml/min; Phosphorus 3.7 mg/dl (2.5-4.9); Potassium 4.5 mmol/L (3.5-5.1)
[2023-01-08] MEDS: busPIRone 7.5 MG TAB PO SCH ×3 (08:49→16:59)
[2023-01-08] MEDS: INSULIN ASPART PER UNIT CHARGE SC SCH ×3 (08:50→17:33)
[2023-01-08] MEDS ORDERED: UMECLIDINIUM BROMIDE 62.5MCG/BLISTER 7 PUFFS/INHALER INH SCH (09:00)
[2023-01-08] MEDS ORDERED: TAMOXIFEN CITRATE 10 MG TABLET PO SCH (09:00)
[2023-01-08] MEDS ORDERED: ACETAMINOPHEN 500 MG TAB PO SCH (09:00)
[2023-01-08] MEDS ORDERED: ARIPIprazole 1 MG/ML ORAL SOLN 150 ML BTL PO SCH (09:00)
[2023-01-08] MEDS ORDERED: FLUTICASONE/VILANTEROL 200/25MCG 14 PUFFS/INHALER INH SCH (09:00)
--- NOTE | 2023-01-08 15:24 | Discharge Summary ---
Date of Service January 08, 2023 Admission HPI Per Admitting Provider The patient is an 87-year-old female with a past medical history including metastatic breast cancer, pathologic rib fractures, depression with anxiety, hearing difficulty, diabetes mellitus, chronic constipation, dyslipidemia, essential tremor, diverticular disease, umbilical hernia and parkinsonism. She presents to the emergency department with abdominal discomfort with decreased oral intake. 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 Admission Exam Per Admitting Provider The patient is awake, alert and oriented 3, well developed and well nourished, normocephalic and atraumatic, lying in bed and in no acute distress. HEENT--PERRL, EOMI, mucous membranes and oropharynx moderately dry. Neck--supple. No JVD. No bruits. Thyroid normal, trachea midline, no adenopathy. Heart--normal S1 and S2. No murmurs, rubs or gallops. Lungs--clear bilaterally, no respiratory distress, no accessory muscle use. Abdomen--normal bowel sounds and soft. Nontender. mildly distended and tympanitic, no hernias or masses, no organomegaly. Extremities--no cyanosis or clubbing. No edema. Dermatologic--normal skin turgor, normal color, no abnormal lymph nodes, no rash. Neurologic--cranial nerves II through XII grossly intact. Rheumatologic--normal range of motion. Psychiatric--normal affect. Principal Diagnosis metastatic breast cancer dehydration Discharge Exam Constitutional + ill appearing, cooperative and + lethargic Neck trachea midline, no thyromegaly Respiratory normal respiratory effort; no respiratory distress, no labored breathing and no cough Cardiovascular RRR, no murmur, no edema Gastrointestinal (Abdomen) Inspection/Auscultation: abdomen normal to inspection and normal bowel sounds soft, mildly distended Discharge Data Allergies Allergy/AdvReac Type Severity Reaction Status Date / Time sulfamethoxazole Allergy Severe swelling Verified 01/01/23 13:59 of ankles/hands/feet amoxicillin [From Augmentin] Allergy Intermediate Hives Verified 01/01/23 13:59 ceftriaxone Allergy Intermediate Rash, Verified 01/01/23 13:59 pruritis clavulanic acid Allergy Intermediate Hives Verified 01/01/23 13:59 [From Augmentin] doxycycline Allergy Intermediate Gastrointestinal Verified 01/01/23 13:59 Upset benzoyl peroxide AdvReac Intermediate Rash Verified 01/01/23 13:59 ciprofloxacin AdvReac Unknown SEE COMMENT Verified 01/01/23 13:59 metronidazole AdvReac Unknown SEE COMMENT Verified 01/01/23 13:59 Consultations 01/07/23 19:20 ED Decision to Admit Stat Ordered Studies 01/07/23 16:54 CT abd pelvis IV con only Stat IMPRESSION: 1. Innumerable hepatic lesions are concerning for metastatic disease. There is partial visualization of a density in the left breast compatible with previous treatment site of breast cancer. There are also numerous lytic foci in the skeleton which are also concerning for metastatic disease. 2. Pathologic appearing fracture of the right posterior 11th rib. Subacute appearing fractures of the left ribs which may be mechanical. 3. Additional findings as above Hospital Course (1) Dehydration: Patient was hydrated with normal saline plus KCl 20 mill equivalents 100 mils per hour Patient was started on full liquid diet and then advanced to carb consistent (2) Acute hyponatremia: As above improved with IV hydration (3) Metastatic disease: Breast cancer metastatic to liver and bone- Patient was made OFFICE SUPPORT CLERK No further aggressive treatment Control pain with Tylenol and oxycodone Multiple noted rib fractures to be pathologic Family wanting to take patient home with hospice (4) Acid reflux: continue pantoprazole (5) Depression with anxiety: Continue aripiprazole, buspirone, venlafaxine (6) 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): Placed on Accu-Cheks with NovoLog SSI (7) 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 The encounter with the patient was in whole, or in part, for the following medical condition, which is the primary reason for home health care (list medical condition): I certify that, based on my findings, the following services are medically necessary home health services: My clinical findings support the need for the above services because: Further, I certify that my clinical findings support that this patient is homebound (i.e. absences from home require considerable and taxing effort and are for medical reasons or sikhism services or infrequently or of short duration when for other reasons) because: Certification for Home Health Services: Based on the above findings, I certify that this patient is confined to the home and needs intermittent fdc care, physical therapy and/or speech therapy or continues to need occupational therapy. The patient is under my care, and I have initiated the establishment of the plan of care. This patient will be followed by a physician who will periodically review the plan of care. Total Time Total Time Spent Total Time Spent (In Minutes): 45 Discharge Plan Discharge Items Patient Disposition: Hospice - Home Reason For Visit: HYPONATREMIA, DEHYDRATION, METASTATIC DISEASE Discharge Diagnosis: metastatic breast cancer pathologic fractures Activity: Resume your previous activity Lifting: Gradually increase as tolerated Non-emergency contact: Primary Care Provider Call non-emergency contact if: you have any medication questions Follow-up/Referrals: Cris Sandoval MD [Primary Care Provider] - Diet: Carb Consistent or DM2 Addtl Attending Provider Instructions: You were admitted with abdominal discomfort and had a CT of your abdomen revealing metastatic disease in your liver and bone as well as some fractures due to metastic disease. You and your family decided on comfort measures only and wished to be discharged to home with hospice. Hospice and your family doctor can make decisions going forward with what medications can be stopped and what medications you wish to continue taking. Pending Studies at Discharge: No Stand-Alone Forms: My [facility] Medications and DC Order Prescriptions: New oxycodone 5 mg Tablet 10 mg PO Q6H PRN (Reason: pain) Qty: 30 0RF Continued acetaminophen [Tylenol Extra Strength] 500 mg tablet 1,000 mg PO DAILY guaifenesin [Mucinex] 600 mg tablet extended release 12hr 600 mg PO Q12H PRN (Reason: Congestion) furosemide [Lasix] 20 mg tablet 20 mg PO DAILY PRN (Reason: edema) Qty: 90 1RF (DME) pen needle, diabetic [BD Trudy 2nd Gen Pen Needle] 32 gauge x 5/32" needle See Rx Instructions .Route Qty: 400 3RF Rx Instructions: Use QID with insulin injections pantoprazole [Protonix] 40 mg tablet,delayed release (DR/EC) 40 mg PO BID Qty: 180 3RF insulin lispro [Humalog KwikPen Insulin] 100 unit/mL insulin pen 30 unit SQ DAILY MDD 30 UNITS Qty: 2 3RF Rx Instructions: Inject per sliding scale; TDD 30 units (DME) Incentive Spirometer Misc See Rx Instructions .Route Qty: 1 0RF Rx Instructions: use as directed BOGDAN 99 buspirone 7.5 mg tablet 7.5 mg PO TIDM venlafaxine 150 mg capsule,extended release 24hr 150 mg PO DAILYBB Rx Instructions: TOTAL DOSE 262.5 MG--TAKE WITH 75 MG AND 37.5 MG TABS. venlafaxine 37.5 mg tablet extended release 24hr 37.5 mg PO DAILYBB Rx Instructions: TOTAL DOSE= 262.5 MG--TAKE WITH 75 MG AND 150 MG TABS. aripiprazole [Abilify] 2 mg tablet 2 mg PO QAM Lantus Solostar U-100 Insulin 100 unit/mL (3 mL) insulin pen 8 unit SQ HS fluticasone furoate-vilanterol [Breo Ellipta] 200-25 mcg/dose blister with device 1 inh INH QAM Qty: 60 12RF Spiriva Respimat 1.25 mcg/actuation mist 2 puff INH QAM Qty: 4 12RF montelukast 10 mg tablet 10 mg PO HS Qty: 90 4RF levocetirizine 5 mg tablet 5 mg PO HS PRN (Reason: allergy symptoms) Qty: 90 1RF primidone 50 mg tablet 200 mg PO TID Qty: 1080 3RF propranolol 80 mg capsule,extended release 24hr 80 mg PO HS 90 Days Qty: 90 3RF zonisamide 100 mg capsule 100 mg PO BID 90 Days Qty: 180 3RF Glucagon (HCl) Emergency Kit 1 mg recon soln 1 mg subcut Q20M PRN (Reason: hypoglycemia) Qty: 1 5RF Rx Instructions: until target blood sugar attained tamoxifen 20 mg tablet 20 mg PO DAILY Rx Instructions: take with full glass of water alendronate 70 mg tablet 70 mg PO .weekly albuterol sulfate 90 mcg/actuation HFA aerosol inhaler 2 puff inhalation Q6H PRN (Reason: shortness of breath or wheezing) Qty: 18 3RF fluticasone propionate 50 mcg/actuation spray,suspension 1 - 2 spray intranasal DAILY Qty: 15.8 3RF (DME) Spacer for Inhaler Misc See Rx Instructions .Route Qty: 1 1RF Rx Instructions: To use with Albuterol inhaler Probiotic 3 billion cell Capsule 3,000 mmu cells PO DAILYBB venlafaxine 75 mg capsule,extended release 24hr 75 mg PO DAILYBB Rx Instructions: TOTAL DOSE 262.5 MG--TAKE WITH 150 MG AND 37.5 MG TABS. Centrum Silver Women 8 mg iron-400 mcg-300 mcg tablet 1 tab PO QDL polyethylene glycol 3350 [Miralax] 17 gram powder in packet 17 g PO DAILY PRN (Reason: Constipation) PreserVision AREDS-2 [id number] iq-xudl-iw-mg capsule 1 tab PO BIDM Rx Instructions: administer with meals; breakfast and dinner calcium carbonate-vitamin D3 [Calcium 600 + D(3)] 600 mg-5 mcg (200 unit) tablet 1 tab PO DAILY oxycodone 5 mg tablet 5 - 10 mg PO BID PRN (Reason: Pain) Discharge Orders: Discharge Order (Routine); Ordered 01/08/23 Ordered By: Rosalba Ram Admission Data Admit Date/Time: 01/07/23 21:03 Attending Provider: Henry Bui Admit Provider: Kirk Bolton Primary Care Provider: Cris Sandoval Other Providers: Kirk Bolton ; [facility],Hospice Other Interventions: Discharge Summary Assessment (RN) Last Done: 01/08/23 16:17 Coding Level of Care Code 46648 INP/OBS DISCH >30 MIN Diagnoses Dehydration E86.0 Acute hyponatremia E87.1 Metastatic disease C79.9 Acid reflux K21.9 Depression with anxiety F41.8 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
[2023-01-08 15:43] VITALS: BP 160/73; TEMP 98.6
[2023-01-08] MEDS ORDERED: oxyCODONE HCL IR 5 MG TAB (IMMEDIATE RELEASE) PO PRN (15:43)
[2023-01-08] MEDS ORDERED: oxyCODONE HCL IR 5 MG TAB (IMMEDIATE RELEASE) PO STA (16:42)
== END 2023-01-08 17:45 | disposition hospice, home (50) ==
LOC: 3N 16:05 → ED 16:05 → SUATTDRO 21:03 → 3N 22:00